=== PATIENT | female | born 1970 | race African-American/Black ===

== ENCOUNTER 2019-05-16 09:45 | Inpatient (IN) ==
--- NOTE | 2019-05-16 09:57 | PROVIDER DOCUMENTATION ---
HPI-Musculoskeletal Pain/Inj - GENERAL Chief Complaint: Extremity Pain Stated Complaint: leg pain Time Seen by Provider: 05/16/19 09:47 Source: patient - HX OF PRESENT ILLNESS-MUSKULOSKELTAL Nature of Presenting Problem: 49yof presents to ED c/o right leg pain and swelling today since waking. She denies fever/chills/N/V/chest pain/SOB/any known injuries. Quality of Pain: reports: aching Severity in ED: moderate Onset/Duration: gradual Timing: still present Modifying Factors: improves with: nothing Any recent injury?: No Locality of Occurance: Home Similar Symptoms Previously?: No Recently seen or treated by another doctor?: No Review of Systems - Adult - REVIEW OF SYSTEMS - ADULT Constitutional: reports: no symptoms reported Eyes: reports: no symptoms reported Ears, Nose, Mouth & Throat: reports: no symptoms reported Cardiovascular: reports: no symptoms reported Respiratory: reports: no symptoms reported Gastrointestinal: reports: no symptoms reported Genitourinary: reports: no symptoms reported Musculoskeletal: reports: no symptoms reported Integumentary: reports: see HPI, other (right leg swollen/painful) Neurological: reports: no symptoms reported Psychiatric: reports: no symptoms reported Endocrine: reports: no symptoms reported Hematologic/Lymphatic: reports: no symptoms reported Allergic/Immunologic: reports: no symptoms reported All Other Systems: Reviewed and Negative Past History - Adult - PAST MEDICAL HISTORY-ADULT Review of Records: reports: Old Records Reviewed, Nursing Assessment Review, Medications Reviewed, Social history reviewed & non-contributory. - SOCIAL HISTORY Smoking: non-smoker Living Situation: family Physical Exam-Injury Related - Physical Exam-Injury Related Initial Vital Signs Reviewed: Yes General Appearance: appears well, alert, no apparent distress Eyes: PERRL/EOMI, pink conjunctivae Head, Ears, Nose, Mouth & Throat: normocephalic/atraumatic, moist mucous membranes, normal ENT inspection, TMs normal, pharynx normal Neck: non-tender, full range of motion, supple, normal inspection, other (no meningismus) Respiratory: chest non-tender, lungs clear, normal breath sounds, no pleuratic chest pain, no respiratory distress, no accessory muscle use Cardiovascular: normal peripheral pulses, tachycardia Abdominal Exam: normal bowel sounds, non tender, soft, no organomegaly Lymphatic: no adenopathy Back Exam: normal inspection, no CVA tenderness, no vertebral tenderness Extremity: normal range of motion, swelling (right leg from calf to toes: moderate), tenderness (right leg from calf to toes: moderate) Integumentary: normal color, warm/dry 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, grossly normal, no motor/sensory deficits Psych/Mental Status: normal mood/affect, normal thought content, normal thought process, oriented x 3 - Glascow Coma Score Best Eye Response (Tonya): (4) open spontaneously Best Verbal Response (Tonya): (5) oriented Best Motor Response ([place]): (6) obeys commands Tonya Total: 15 Progress - PLAN OF CARE/RESULTS Progress/Plan/Lab Results: Vital Signs - 8 hr 05/16/19 09:50 05/16/19 12:50 05/16/19 13:18 Temperature 100.2 F H 99.5 F Pulse Rate 143 H 134 H Respiratory Rate 24 22 Blood Pressure 111/70 122/62 O2 Sat by Pulse Oximetry 96 99 05/16/19 12:18 Influenza Screen - Final Nasopharyngeal Laboratory Results - last 24 hr 05/16/19 05/16/19 05/16/19 11:15 11:15 11:15 WBC 30.09 H RBC 3.37 L Hgb 11.0 L Hct 33.7 L MCV 100.0 H MCH 32.6 H MCHC 32.6 L RDW Std Deviation 13.3 Plt Count 194 MPV 12.5 H Immature Gran % (Auto) 1.4 H Neut % (Auto) 91.9 H Lymph % (Auto) 2.5 L Reagan % (Auto) 4.1 Eos % (Auto) 0.0 Baso % (Auto) 0.1 Immature Gran # (Auto) 0.43 H Neut # (Auto) 27.65 H Lymph # (Auto) 0.75 L Reagan # (Auto) 1.23 H Eos # (Auto) 0.00 Baso # (Auto) 0.03 Segmented Neutrophils 76 H Band Neutrophils 18 H Lymphocytes 2 L Monocytes 4 PT 14.8 INR 1.14 PTT (Actin FS) 27.0 D-Dimer, Quantitative 0.88 H Sodium 140 Potassium 2.4 L* Chloride 87 L Carbon Dioxide 35 Anion Gap 18 BUN 6 L Creatinine 0.6 Estimated GFR/1.73 m2 > 60 BUN/Creatinine Ratio 10 Glucose 192 H Calculated Osmolality 282 Calcium 9.1 Total Bilirubin 0.78 AST 16 ALT 25 Alkaline Phosphatase 65 Creatine Kinase 44 Troponin T Qlp-Y-Yittofecinq Pept Total Protein 6.6 Albumin 3.3 L Globulin 3.3 Albumin/Globulin Ratio 1.0 Plasma Lactate Cortisol Urine Source 05/16/19 05/16/19 05/16/19 11:15 11:15 11:15 WBC RBC Hgb Hct MCV MCH MCHC RDW Std Deviation Plt Count MPV Immature Gran % (Auto) Neut % (Auto) Lymph % (Auto) Reagan % (Auto) Eos % (Auto) Baso % (Auto) Immature Gran # (Auto) Neut # (Auto) Lymph # (Auto) Reagan # (Auto) Eos # (Auto) Baso # (Auto) Segmented Neutrophils Band Neutrophils Lymphocytes Monocytes PT INR PTT (Actin FS) D-Dimer, Quantitative Sodium Potassium Chloride Carbon Dioxide Anion Gap BUN Creatinine Estimated GFR/1.73 m2 BUN/Creatinine Ratio Glucose Calculated Osmolality Calcium Total Bilirubin AST ALT Alkaline Phosphatase Creatine Kinase Troponin T < 0.010 Dmx-F-Ohzibnikvxc Pept 291 H Total Protein Albumin Globulin Albumin/Globulin Ratio Plasma Lactate 5.0 H* Cortisol Urine Source 05/16/19 05/16/19 11:15 14:45 WBC RBC Hgb Hct MCV MCH MCHC RDW Std Deviation Plt Count MPV Immature Gran % (Auto) Neut % (Auto) Lymph % (Auto) Reagan % (Auto) Eos % (Auto) Baso % (Auto) Immature Gran # (Auto) Neut # (Auto) Lymph # (Auto) Reagan # (Auto) Eos # (Auto) Baso # (Auto) Segmented Neutrophils Band Neutrophils Lymphocytes Monocytes PT INR PTT (Actin FS) D-Dimer, Quantitative Sodium Potassium Chloride Carbon Dioxide Anion Gap BUN Creatinine Estimated GFR/1.73 m2 BUN/Creatinine Ratio Glucose Calculated Osmolality Calcium Total Bilirubin AST ALT Alkaline Phosphatase Creatine Kinase Troponin T Ohg-U-Hijrhufaril Pept Total Protein Albumin Globulin Albumin/Globulin Ratio Plasma Lactate Cortisol 10.8 Urine Source CLEAN CATCH Orders Category Date Time Status Cardiac Monitoring DIRECTED Care 05/16/19 10:17 Active Rivera Cath Insertion ORDERED Care 05/16/19 12:13 Active IV Insertion ORDERED Care 05/16/19 10:19 Completed IV [Saline Loc] NOW Care 05/16/19 09:55 Active Notify MD of + Sepsis Screen NOW Care 05/16/19 10:19 Active Notify Physician As Ordered Care 05/16/19 10:19 Active Nursing- Obtain EKG ONCE Care 05/16/19 10:16 Active Repeat Vital Signs .Blood Pressure Care 05/16/19 11:03 Active Repeat Vital Signs .Heart Rate Care 05/16/19 11:03 Active Repeat Vital Signs .Temp Care 05/16/19 10:17 Active CHEST-1 VIEW [RAD] Stat Exams 05/16/19 10:16 Completed CTA [CT ANGIOGRM PULMONARY ARTERIES] [CT] Stat Exams 05/16/19 12:40 Ordered LOWER LEG-RIGHT [RAD] Stat Exams 05/16/19 13:00 Completed BLOOD CULTURE [BLDCUL] Stat Lab 05/16/19 12:18 Results CBC WITH DIFF [HEME] Stat Lab 05/16/19 11:15 Completed CK PROFILE [SP CHEM] Stat Lab 05/16/19 11:15 Completed COMPREHENSIVE METABOLIC PANEL [CHEM] Stat Lab 05/16/19 11:15 Completed CORTISOL Stat Lab 05/16/19 11:15 Completed D-DIMER [COAG] Stat Lab 05/16/19 11:15 Completed INFLUENZA SCREEN A/B Stat Lab 05/16/19 12:18 Completed LACTATE, PLASMA [CHEM] Q3H Lab 05/16/19 11:15 Completed LACTATE, PLASMA [CHEM] Q3H Lab 05/16/19 15:09 Received LACTATE, PLASMA [CHEM] Q3H Lab 05/16/19 16:30 Uncollected LACTATE, PLASMA [CHEM] Stat Lab 05/16/19 15:19 Ordered PRO B-NATRIURETIC PEPTIDE Stat Lab 05/16/19 11:15 Completed PROTIME WITH INR [COAG] Stat Lab 05/16/19 11:15 Completed PTT [COAG] Stat Lab 05/16/19 11:15 Completed TROPONIN T Stat Lab 05/16/19 11:15 Completed URINALYSIS [URINALYSIS] Stat Lab 05/16/19 14:45 Results 0.9% Sodium Chloride Inj [Ns] 1,000 ml Med 05/16/19 12:12 Discontinued IV 999 mls/hr 0.9% Sodium Chloride Inj [Ns] 1,000 ml Med 05/16/19 12:56 Discontinued IV 999 mls/hr 0.9% Sodium Chloride Inj [Ns] 500 ml Med 05/16/19 10:16 Discontinued IV 999 mls/hr 0.9% Sodium Chloride Inj [Ns] 900 ml Med 05/16/19 13:03 Discontinued IV 999 mls/hr Acetaminophen [Tylenol] Med 05/16/19 10:19 Discontinued 1,000 mg PO NOW ONE CefTRIAXONE [Rocephin] 2 gm Med 05/16/19 12:10 Discontinued 0.9% Sodium Chloride Inj [Ns] 50 ml IV NOW Hydrocortisone Sod Succinate [Solu-Cortef] Med 05/16/19 13:03 Discontinued 100 mg IV NOW ONE Morphine Med 05/16/19 13:01 Discontinued 4 mg IV NOW ONE Ondansetron [Zofran] Med 05/16/19 13:01 Discontinued 4 mg IV NOW ONE Potassium Chloride E.r. [Klor-Con] Med 05/16/19 12:40 Discontinued 40 meq PO NOW ONE Vancomycin 1 gm/Ns Med 05/16/19 13:01 Discontinued 1 gm in 250 ml IV NOW Oxygen Device Stat Oth 05/16/19 10:19 Active Pulse Oximetry Stat Oth 05/16/19 10:17 Active EKG [EKG] Stat Ther 05/16/19 10:16 Draft US [Venous U/S Right Leg] Stat Ther 05/16/19 10:18 Completed Transfer/Admit Order [TRANSFER] Routine Transfer 05/16/19 15:22 Ordered Result Diagrams: 05/16/19 11:15 05/16/19 11:15 - REASSESSMENT Reassessment #1 Time Reassessed: 12:12 (Reviewed CBC, Lactic, CXR. Awaiting UA/CMP.) Reassessment #2 Time Reassessed: 15:04 (Continue to await UA results. Dr. Borja has coexamined pt and added Vancomycin IV for RLE cellulitis.) Reassessment #3 Time Reassessed: 15:20 (Spoke with Dr. Calle, he recommends admit to ICU with Dr. Cee and Dr. Jacobs consults. He is aware UA and CTA chest results pending.) Reassessment #4 Time Reassessed: 15:24 (Discussed admit with Dr. Borja, he agrees with plan set forth by Dr. Calle.) Reassessment #5 Time Reassessed: 16:09 Status: worsening (increased pain right leg. Continued tachycardia. Worried about possible necrotizing fasciits.) - CONSULTS/PCP/HOSPITALIST Notification #1 *Consult/PCP/Hospitalist*: Tyler (occupational health nurse for [facility]) Time Discussed: 16:10 Consult Disposition: Will see in ED #2 Consult: chantal Time Discussed: 16:10 Consult Disposition: Will see in ED Departure - Departure Date of Disposition Decision: 05/16/19 Time of Disposition Decision: 15:24 DIAGNOSIS: Hypokalemia, Cellulitis of right leg Sepsis Qualifiers: Sepsis type: sepsis due to unspecified organism Sepsis acute organ dysfunction status: with acute organ dysfunction Severe sepsis acute organ dysfunction type: unspecified Severe sepsis shock status: without septic shock Qualified Code(s): A41.9 - Sepsis, unspecified organism Disposition: ADMITTED INPATIENT 09 Certified Medical Emergency: Emergent Condition: Critical Referrals and Follow-Ups: Denis Calle Jr, MD [Primary Care Provider] - - Critical Care Note This patient required my direct & personal management of CC.: Yes Total Time (mins): 65 Critical Care Statement: This patient required my direct personal management to treat or rule out processes, the absence of which, could potentiallly result in sudden, clinically significant life or limb threatening deterioration. Attestation - Physician/ ZACH Attestation Patient care was provided by Advanced Practice Provider:: Yes Advanced Practice Provider:: Madeline Qiu Advanced Practice Provider documentation review:: The Mid-level provider documentation, treatment plan and medical decision making was reviewed by the physician who agrees with all treatment and medical decision making by the MLP. The physician spent face to face time with patient:: Yes (Dr. Borja coexamined pt.) Advanced Practice Provider documentation review:: Supervising physician onsite and consulted in the evaluation and care of this patient. The physician did have a face to face encounter with the patient. Sepsis: Tissue Perfusion Assmt - Physical Exam Assessment Date: 05/16/19 Time Assessment Initialized: 16:12 Vital Signs: Last Vital Signs Temp 99.5 F 05/16/19 12:50 Pulse 134 H 05/16/19 13:18 Resp 22 05/16/19 13:18 BP 122/62 05/16/19 13:18 Pulse Ox 99 05/16/19 13:18 Height 5 ft 1 in Weight 78.925 kg 05/16/19 16:12 PAtient seems to be worse clinically, increased pain right leg, still tachycardic, water mangle tender. BP normal, skin clean and dry. Lung Sounds:: lungs clear Heart Sounds:: Regular (tachycardic) Capillary Refill Time: Less Than 2 Seconds Peripheral Pulse Evaluation:: radial (R): 2+, radial (L): 2+, dorsalis-pedis (R): 2+, dorsalis-pedis (L): 2+ Skin Exam:: flushed, turgor good - Impression Impression:: Tissue Perfusion Adequate - Plan Plan:: See Orders
[2019-05-16] MEDS ORDERED: NS 500 ML IV ONE (10:16)
[2019-05-16] MEDS ORDERED: TYLENOL PO ONE (10:19)
--- NOTE | 2019-05-16 10:55 | Diag Imaging Result Doc PS360 ---
EXAM: CHEST-1 VIEW 05/16/2019 HISTORY: tachycardia TECHNIQUE: AP upright chest COMMENT: Compared to the previous examination of 10/15/2018 the alveolar opacities which were present previously bilaterally have diminished slightly. Otherwise are has been no significant change. IMPRESSION: Pulmonary fibrosis. Electronically signed by Luis Rick 05/16/2019 10:53 AM
--- NOTE | 2019-05-16 11:02 | EKG Report ---
Test Performed on : 05/16/2019 10:08:06 AM Test Reason : tachycardia Blood Pressure : / mmHG Vent. Rate : 138 BPM Atrial Rate : 138 BPM P-R Int : 172 ms QRS Dur : 082 ms QT Int : 254 ms P-R-T Axes : 047 087 230 degrees QTc Int : 384 ms Sinus tachycardia. Possible Left atrial enlargement Left ventricular hypertrophy with repolarization abnormality Abnormal ECG When compared with ECG of 15-OCT-2018 07:14, premature supraventricular complexes. are no longer present Vent. rate has increased BY 70 BPM QRS duration has decreased Inverted T waves have replaced nonspecific T wave abnormality in Inferior leads T wave inversion now evident in Anterolateral leads Unconfirmed Result
[2019-05-16 11:53] LABS: BASO# 0.03 X1000 (0.0-0.2); BASO% 0.1 % (0.0-0.8); HEMATOCRIT 33.7 % (37.0-47.0); IMM GRAN# 0.43 X1000 (0.0-0.04); IMM GRAN% 1.4 % (0.0-0.5); LYMPH# 0.75 X1000 (1.2-3.4); LYMPH% 2.5 % (20.5-51.1); MCH 32.6 PG (27-31); MCHC 32.6 g/dL (33-37); MONO# 1.23 X1000 (0.11-0.59); MONO% 4.1 % (1.7-9.3); MPV 12.5 FL (7.4-10.4); NEUT# 27.65 X1000 (1.4-6.5); NEUT% 91.9 % (42.2-75.2); PLT 194 X1000 (130-400); RBC 3.37 XMIL (4.2-5.4); RDW 13.3 % (11.5-14.5); WBC 30.09 X1000 (4.8-10.8)
[2019-05-16 11:54] LABS: INR 1.14; PROTIME 14.8 Seconds (11.0-16.0)
[2019-05-16] MEDS ORDERED: ROCEPHIN 2 GM in NS 50 ML IV ONE (12:10)
[2019-05-16] MEDS ORDERED: NS 1,000 ML IV ONE ×2 (12:12→12:56)
[2019-05-16 12:34] LABS: AGAP 18; ALBUMIN 3.3 g/dL (3.5-5.0); ALKALINE PHOSPHATASE 65 U/L (32-104); BUN 6 mg/dL (8-22); CALCIUM 9.1 mg/dL (8.8-10.2); CHLORIDE 87 mmol/L (98-107); CK PROFILE 44 U/L (24-173); COSMO 282; CREATININE 0.6 mg/dL (0.5-0.9); ESTIMATED GFR > 60; GLUCOSE 192 mg/dL (70-104); GOT 16 U/L (10-30); GPT 25 U/L (10-36); SODIUM 140 mmol/L (136-145); TCO2 35 mmol/L (25-35); TOTAL BILIRUBIN 0.78 mg/dL (0.20-1.00); TOTAL PROTEIN 6.6 g/dL (6.3-8.3)
[2019-05-16 12:35] LABS: POTASSIUM 2.4 mmol/L (3.5-5.1)
[2019-05-16] MEDS ORDERED: KLOR-CON PO ONE (12:40)
[2019-05-16] MEDS ORDERED: ZOFRAN IV ONE ×2 (13:01→16:10)
[2019-05-16] MEDS ORDERED: VANCOMYCIN 1 GM/NS 1 GM/250 ML IVPB IV ONE ×2 (13:01→18:00)
[2019-05-16] MEDS ORDERED: MORPHINE IV ONE ×2 (13:01→16:10)
[2019-05-16] MEDS ORDERED: NS 900 ML IV ONE (13:03)
[2019-05-16] MEDS ORDERED: SOLU-CORTEF IV ONE (13:03)
[2019-05-16 13:28] LABS: BANDS 18 % (0-1); LYMPHS 2 % (21-51); MONO 4 % (1-9); SEGS 76 % (42-75)
--- NOTE | 2019-05-16 14:00 | Diag Imaging Result Doc PS360 ---
EXAM: LOWER LEG-RIGHT 05/16/2019 HISTORY: right leg pain, sepsis, r/o gas TECHNIQUE: Right lower leg four views COMMENT: There is no evidence of fracture or dislocation periosteal reaction or erosion. There is no evidence of soft tissue gas however there is considerable subcutaneous edema present typically inferiorly and on the lateral aspect of the calf. IMPRESSION: No evidence of acute bony disease. Electronically signed by Luis Rick 05/16/2019 1:58 PM
[2019-05-16 15:18] LABS: URINE SOURCE CLEAN CATCH
[2019-05-16 15:26] LABS: BILIRUBIN URINE NEGATIVE (NEGATIVE); BLOOD URINE NEGATIVE (NEGATIVE); COLOR YELLOW; GLUCOSE URINE 70 mg/dL (NEGATIVE); KETONE URINE 10 mg/dL (NEGATIVE); LEUKOCYTES URINE NEGATIVE (NEGATIVE); NITRITE URINE NEGATIVE (NEGATIVE); PH URINE 5.5; PROTEIN URINE 30 mg/dL (NEGATIVE); SP GRAVITY URINE 1.021; TURBIDITY URINE HAZY (CLEAR); UROBILINOGEN URINE NORMAL (NORMAL)
[2019-05-16 15:28] LABS: UR EPITHELIAL CELLS <10 /HPF (<10); URINE BACTERIA 4+ /HPF; URINE RBC <10 /HPF (<10); URINE WBC <10 /HPF (<10)
[2019-05-16] MEDS ORDERED: ZOSYN 4.5 GM in NS 100 ML IV ONE (16:10)
[2019-05-16] MEDS ORDERED: VANCOMYCIN IV PER PHARMACY MISC SCH (16:30)
[2019-05-16] MEDS ORDERED: MAXIPIME 2 GM in NS 100 ML IV SCH (16:30)
[2019-05-16] MEDS ORDERED: CLINDAMYCIN 600 MG/NS 600 MG/50 ML IVPB IV SCH (16:45)
[2019-05-16 17:33] LABS: ALLEN TEST YES; BLOOD TYPE ARTERIAL; HCO3-(ACT) 35.8 mmoll (20.0-26.0); METHB 1.4 % (0.0-1.5); O2(CT) 14.9 mL/dL (15.0-23.0); O2HB 94.8 % (95.0-99.0); PCO2(98.6) 50 mmHg (35-45); PO2(98.6) 81 mmHg (60-100); SAMPLE BLOOD; THB 11.1 g/dL (11.5-17.4)
[2019-05-16 17:42] LABS: MODALITY CANNULA
[2019-05-16] MEDS ORDERED: XANAX XR PO PRN (18:05)
--- NOTE | 2019-05-16 18:42 | HISTORY AND PHYSICAL ---
CHIEF COMPLAINT: Right leg pain. HISTORY OF PRESENT ILLNESS: The patient is a 49-year-old, black female, with sarcoidosis, is on multiple medications including methotrexate and prednisone. She was actually scheduled for a comprehensive exam at my office yesterday and called in and cancelled because she just did not feel well. This morning apparently, she woke up with her right leg swollen, and so it hurt so much that she decided to come to the emergency room. Here, it was found out that she has at least a cellulitis, and has a high lactate of 7 and a high white count of a little over 30,000. Hemoglobin is 11.0. PAST MEDICAL HISTORY: Includes sarcoidosis, dependent edema, hypertension, anxiety. MEDICATIONS: Please see medication list. SURGICAL HISTORY: She has had no previous surgeries. FAMILY HISTORY: Mother, brother, and sister are alive. Father is . Brother and sister have hypertension. Paternal grandfather had cancer of the prostate. SOCIAL HISTORY: Former tobacco. Only occasionally uses alcohol with a beer maybe on a weekend. REVIEW OF SYSTEMS: Neurologic: Denies headaches, seizures, visual problems, hearing problems. Pulmonary: She has had chronic shortness of breath with her sarcoidosis, but this seems to have been getting better recently. She is on home oxygen. Cardiovascular: Denies chest pain, heart palpitations, PND, orthopnea. Gastrointestinal: Denies hematochezia, hematemesis, melena, constipation, diarrhea. Genitourinary: Denies any difficulty with urination. Musculoskeletal: She has a swollen right leg that started this morning, or that is when she noticed it. She said she had been itching with her legs a lot and she did scratch her leg, and this may be a source of cellulitis. Endocrine: Denies diabetes, thyroid problems, pituitary problems. PHYSICAL EXAMINATION: VITAL SIGNS: Temperature 100.2 degrees Fahrenheit, blood pressure 110/70, respirations 24, pulse 143. HEENT: Normocephalic. EOMS intact. PERRLA. Throat clear. Fundi benign. NECK: Supple without thyromegaly, lymphadenopathy, carotid bruits. LUNGS: Clear to auscultation and percussion without rhonchi, rales, or wheezes. HEART: Tachycardic without murmurs, gallops, or friction rubs. She has had tachycardia in the past with her sarcoidosis. ABDOMEN: Soft. Active bowel sounds. No organomegaly or tenderness. BREAST: Exam deferred. PELVIC: Exam deferred. RECTAL: Exam deferred. EXTREMITIES: Right lower extremity is swollen from the leg up to her knee. She has one little scratched area that could be a skin breakdown for a source of cellulitis. NEUROLOGICAL: Cranial nerves 2-12 intact grossly. Sensory and motor intact. Reflexes 1+ all. The patient does have pulses in her feet. LABORATORY: A white count of 30,090, hemoglobin 11.0. Potassium is low at 2.4. BUN is 6, creatinine 0.6. Troponin is normal. Plasma lactate was 7.0. Urinalysis did show 4+ bacteria, but negative for leukocytes, negative for blood. She does have a small amount of protein at 30 and a small amount of glucose at 70. Her blood sugar was 192. ASSESSMENT: 1. Cellulitis of right lower extremity. 2. Possible sepsis with elevated lactate. 3. Rule out compartment syndrome. PLAN: We will start her on IV antibiotics. We will do blood cultures. I have consulted Infectious Disease, Surgery, and Pulmonary. Surgery is evaluating her for compartment syndrome. At this time, Dr. Valero does not think she has it, but he is going to watch this closely. Appreciate the help from all of the specialists. cc: Denis Calle Jr, MD
--- NOTE | 2019-05-16 20:23 | Diag Imaging Result Doc PS360 ---
EXAM: CT EXT LOWER RIGHT W/O CON HISTORY: necrotizing fasciitis TECHNIQUE: CT right lower extremity without contrast COMPARISON: None. FINDINGS: No fracture or dislocation. No bone destruction. No air in the soft tissues. Mild subcutaneous edema. No well-defined fluid collection. IMPRESSION: Mild subcutaneous edema. Electronically signed by Christopher Kerr 05/16/2019 8:21 PM
[2019-05-16] MEDS ORDERED: CARDIZEM 100 MG/NS 100 MG/100 ML IVPB IV SCH (20:30)
[2019-05-16] MEDS ORDERED: LOPRESSOR IV SCH (20:30)
--- NOTE | 2019-05-16 20:43 | GENERAL SURGERY CONSULTATION ---
DATE: 05/16/2019 REQUESTING PHYSICIAN: Dr. Borja and TRACI Hare. REASON FOR CONSULTATION: Possible necrotizing fasciitis. HISTORY OF PRESENT ILLNESS: This is a 49-year-old female who was in her usual state of health when she was awakened this morning with acute onset of right lower leg pain it is described as pain from just below her knee all the way down into her foot. It has been persistent throughout the day but not necessarily progressive. The pain is induced by bearing weight or movement, but currently she denies pain while lying still. She also reports some swelling of her right leg and some chills last night. She denies any leg trauma, recent significant exercise or other insult to her leg. However, she does report was scratching her legs a few days ago due to some itching and she has a few scabs on the front of her leg. She has received over 2 L of fluid since being seen in the ER. She remains tachycardic but not hypotensive. Her lactic acid level increased from 5 to 7. PAST MEDICAL HISTORY: Sarcoidosis and COPD. PAST SURGICAL HISTORY: None. HOME MEDICATIONS: Alprazolam, Wellbutrin, clonidine, folic acid, Lasix, Emery, metoprolol, omeprazole, potassium chloride, pravastatin, prednisone, albuterol inhaler, benzonatate, diltiazem, methotrexate, spironolactone. Of note the patient says she recently was told to get off of her hypertensive medications. ALLERGIES: Ambien. FAMILY HISTORY: Reviewed and noncontributory. SOCIAL HISTORY: She is a former smoker. She denies alcohol or illicit drug use. REVIEW OF SYSTEMS: Ten systems reviewed and negative except as noted above. PHYSICAL EXAMINATION: Vital Signs: Temperature 100.2 degrees on presentation, this morning 99 at 1814 hours. Pulse 120, respirations 19, blood pressure 142/77. O2 saturation 100%. General: She is awake and alert. She is oriented x3. No acute distress. HEENT: Normocephalic, atraumatic. Extraocular muscles intact. Pupils equal, round, reactive to light. Sclerae anicteric. Moist mucous membranes. Hearing grossly normal. No oral lesions. Neck: Supple. No thyromegaly. Cardiovascular: Tachycardic and regular. Respiratory: Bilateral equal breath sounds. No increased work of breathing. Gastrointestinal: Abdomen is soft, nontender, nondistended. No organomegaly or mass. Musculoskeletal: She moves all of her extremities but is moving her right foot somewhat weakly. Skin: Her right leg below the knee has some mild to moderate swelling, warmth, and redness. There are no open sores, but a few small excoriations are noted distally. Extremities: The right leg is somewhat edematous as described. She is tender to palpation in the distal part of the calf and ankle level and along the anterior aspect of the leg and over her foot. She does not have pain in her leg with passive or active range of motion. She has a palpable dorsalis pedis and posterior tibial pulse. Her compartments feel soft. Her tenderness was not exquisite, but mild. LABORATORY: White blood cell count 14744, hemoglobin 11, hematocrit 33. Platelet count 194,000. ABG, pH 7.5, pCO2 50, PaO2 81, bicarbonate 35.8, base excess 14, lactate is 4.8. Of note previous lactic acid levels last year ranged from 1.2 to 6.2. Sodium 140, potassium 2.4, chloride 87, CO2 35, BUN 6, creatinine 0.6 glucose 192. Liver function tests normal. Serum lactate 1st measured 5.0, then 7.0 at 1509 hours. However, as noted earlier, her ABG lactate at 1722 hours was 4.8. Urinalysis is unremarkable except for 4+ bacteria. IMAGING: A plain x-ray of her leg today shows no subcutaneous emphysema, but she does have subcutaneous edema. There is no fracture or bony injury. ASSESSMENT AND PLAN: A 49-year-old female with right leg pain and swelling that is consistent with cellulitis. I have a low suspicion of compartment syndrome or necrotizing fasciitis based on physical exam and history. I believe a CT scan of the leg has been ordered by Dr. Cee. I will follow up these results and repeat my physical exam this evening. If she has an indication based on imaging or clinical deterioration then we would take her to the operating room for bilateral fasciotomy type incisions and exploration of her leg. She has been started on broad-spectrum antibiotics. Thank you for the consultation. cc: MD Denis Sepulveda Jr, MD
--- NOTE | 2019-05-16 20:43 | INFECTIOUS DISEASE CONSULT REP ---
DATE: 05/16/2019 CONCLUSION: Ms. Quiles has a right lower extremity cellulitis as well as a leukocytosis and elevated lactate which has continued to rise after appropriate fluid resuscitation and administration of broad-spectrum antibiotics. There is also bacteria on her urinalysis. She has an underlying sarcoidosis, and is taking immunosuppressant drugs. RECOMMENDATIONS: We have ordered a stat CT of the right lower extremity for the consideration of necrotizing fasciitis. Also Dr. Valero has been consulted. Dr. Borja has spoken with him. The patient has already received a dose of vancomycin. We will continue the vancomycin per Pharmacy dosing and have also added cefepime 2 g IV every 8 hours and clindamycin 600 mg IV every 8 hours. Since the urinalysis shows bacteria, we will add on a urine culture. DISCUSSION: Ms. Quiles states that yesterday she was doing her usual daily activities and went to have a pedicure done. At the time, there was no cut that she noticed. She does have a lot of skin issues with itching and dryness to her lower extremities, which she states she scratches often. There are some areas of eschar. During the night last night, she woke up and noticed pain and difficulty walking, as well as swelling to her right lower extremity. She went back to bed and was unable to put weight on her right leg when she got up this morning. REVIEW OF SYSTEMS/PMH: Constitutional: She denies any fever at home. There has also been no trauma or any issues to her right lower extremity, other than scratching. HEENT: She states her vision is good. She wears contacts, and has regular, clear drainage from her eyes. She has no issues with her hearing or tinnitus. Endocrine: She denies any thyroid issues or diabetes history. Cardiovascular: She denies any chest pain or palpitations. Respiratory: She does have a history of COPD with sarcoidosis and fibrosis. She wears oxygen at home with occasional shortness of breath and use of 2 to 4 L depending on her needs. She uses oxygen around the clock. Denies any cough or coughing up any sputum. Gastrointestinal: She denies any nausea/vomiting, diarrhea, or constipation. She does have occasional hemorrhoids. No history of GI bleed or reflux. Genitourinary: She denies any dysuria or flank pain. Musculoskeletal: No history of arthritis or muscle pain or problems or limitations in her mobility, other than the change that came about last night, with pain, erythema, and edema to the right lower extremity. Psychiatric: Denies any anxiety/depression or any psychiatric diagnoses, however she does take anxiety and depression medications. Hematology/Oncology: She denies any previous blood or iron infusions, any blood dyscrasias or cancers. DIAGNOSTIC STUDIES: Her white count is 30.09, hemoglobin 11, platelet count 194,000. Creatinine is 0.6, estimated GFR is greater than 60. Total bilirubin is 0.78, AST 16, ALT 25, alkaline phosphatase 65. Creatine kinase is 44. Plasma lactate is 7. A urinalysis done shows 4+ urine bacteria and less than 10 WBCs. Blood cultures have been ordered and are preliminary. Flu swab is negative. EKG on the unconfirmed report shows a sinus tachycardia. Chest x-ray shows pulmonary fibrosis. X-ray of the right lower extremity shows no evidence of acute bony disease or soft tissue gas but there is subcutaneous edema. PAST MEDICAL HISTORY: Includes sarcoidosis, COPD with oxygen dependency at home, hyperlipidemia, gastroesophageal reflux disease, and hypertension. PAST SURGICAL HISTORY: Bronchoscopy in the past. SOCIAL HISTORY: [place] . She is disabled. Denies any use of alcohol or illicit drugs. She quit smoking 2 years ago and has an approximately 15-year history of smoking half a pack a day. No pets at home. FAMILY HISTORY: Noncontributory. ALLERGIES: No known allergies. HOME MEDICATIONS: Include Xanax, Bumex, Wellbutrin, vitamin D3, Catapres, folic acid, Lasix, hydrocodone, metoprolol, omeprazole, potassium, pravastatin, prednisone, Daliresp, vitamin B12, folic acid, albuterol, ProAir, benzonatate, Cardizem CD, methotrexate, and spironolactone. INFECTIOUS DISEASE: The patient denies any history of pneumonia or urinary tract infections. OBSTETRICAL/GYNECOLOGICAL HISTORY: She states she has never been . PHYSICAL EXAMINATION: Vital Signs: Temperature is 99.5 degrees, pulse rate 134 respiratory rate 22, blood pressure 122/62, O2 saturation is 96% on 4 L nasal cannula. She weighs 78.9 kg and is 5 feet 1 inch. General: This is a chronically ill-appearing, middle-aged female. She is sitting up in the stretcher, currently in no acute distress. HEENT: Atraumatic, normocephalic. Oral mucous membranes are pink and moist. Conjunctivae are pink. She does have some clear drainage from her eyes and green contacts in place. Neck: Supple. Trachea is midline. Cardiovascular: Heart rate and rhythm are regular and fast, sinus tachycardia on the monitor. Respiratory: Lung sounds are clear and diminished to auscultation. No work of breathing is noted. Abdomen: Soft, obese, and nontender. Bowel sounds are active. Integumentary: There is some erythema and a 2+ pitting edema noted pretibially on the right and 1+ on the left. The right lower extremity does have some mild areas of eschar from previous scratching, but otherwise no open areas. Generally, skin is warm and dry. Neurologic: She is awake, alert, and oriented and able to move around independently on the stretcher. Thank you for allowing us to see Ms. Quiles. Dictated by TRACI Vasquez for Khalif Cee MD cc: MD Denis Perdomo Jr, MD MTDD
[2019-05-16] MEDS: CATAPRES PO SCH (20:59)
[2019-05-16] MEDS: KLOR-CON PO SCH (20:59)
[2019-05-16] MEDS ORDERED: CARDIZEM 125 MG/D5W 125 MG/125 ML IVPB IV SCH (21:00)
[2019-05-16] MEDS: WELLBUTRIN SR PO SCH (21:00)
[2019-05-16] MEDS: BUMEX PO SCH (21:00)
[2019-05-16] MEDS ORDERED: LOPRESSOR IV PRN (21:08)
--- NOTE | 2019-05-16 21:26 | GENERAL SURGERY PROGRESS NOTE ---
DATE: 05/16/2019 SUBJECTIVE: The patient reports her leg pain has lessened some. It is now at a level of 5/10. She recently returned to the room from a CT scan of the leg. OBJECTIVE: Vital Signs: She is afebrile. Pulse is in the 140s, blood pressure 137/79, O2 saturation 100%. General: She is awake and alert. No acute distress. Extremities: The right leg was examined. There remains some mild swelling and tenderness, but she is less tender than before in all compartments. She does not complain of as much pain with passive or active range of motion. LABORATORY: Of note, her CK from earlier was negative. Her liver function tests were negative and her serum lactate had gone from 7 to 6. IMAGING: The CT of the right leg was visualized as well as the report, and there is no soft tissue gas or fluid collection seen. She does have some mild subcutaneous edema and cellulitis. ASSESSMENT AND PLAN: A 49-year-old female with right leg cellulitis, much less likely based on history and physical a deep necrotizing soft tissue infection. We will continue close observation in ICU and broad-spectrum antibiotics. If her symptoms or physical exam and vital signs change, then we would proceed to the operating room for urgent exploration. cc: MD Denis Sepulveda Jr, MD
[2019-05-16] MEDS: CLINDAMYCIN 600 MG/D5W 600 MG/50 ML IVPB IV SCH (22:34)
[2019-05-16] MEDS: SOLU-CORTEF IV SCH (23:16)
[2019-05-16] MEDS: PEPCID IV SCH (23:17)
--- NOTE | 2019-05-17 06:35 | PULMONOLOGY CONSULTATION ---
DATE: 05/16/2019 REQUESTING PHYSICIAN: Dr. Borja. PRIMARY CARE PHYSICIAN: Dr. Calle. CLINICAL HISTORY: Ms. cole is a 49-year-old female with sarcoidosis on steroids and methotrexate, who developed pain, erythema and swelling in her right lower extremity. The patient presented to the emergency room with a low-grade temperature of 100.2 degrees. Laboratories revealed significant leukocytosis with a white blood count of 30,000. Venous Dopplers of the lower extremities were negative by report. The patient was evaluated earlier and has subsequently undergone a CT scan of the lower extremity, which reveals no evidence of air in the soft tissues, with mild subcutaneous edema. The patient's lactic acid has been elevated and she has received fluid boluses. She has now been transferred to the ICU. PAST MEDICAL HISTORY PROBLEM LIST: 1. Sarcoidosis with significant parenchymal disease. 2. Obstructive sleep apnea. 3. History of severe pulmonary hypertensive hypertension, with a hypertrophic right ventricle with a PA systolic pressure approaching 100 in October of 2016. SOCIAL HISTORY: The patient has very minimal tobacco history. No alcohol use. FAMILY HISTORY: Noncontributory to current presentation. REVIEW OF SYSTEMS: As noted in the HPI. PHYSICAL EXAMINATION: General: Reveals a well-developed and well-nourished black female with a BMI of 35, who reports some pain in the right lower extremity. Vital Signs: BP 117/65, heart rate 123, respiratory rate 19, oxygen saturation 100% on nasal 4 L per nasal cannula. HEENT: Pupils are equal and reactive. Oropharynx appears clear. Neck: Supple. Chest: Reveals minimal crackles in the lung bases. Cardiac: Increased rate. Regular rhythm. Abdomen: Soft. Extremities: Reveal erythema, tenderness and swelling of the right lower extremity. LABORATORY DATA: PH 7.50, pCO2 of 50, PO2 of 81, with a lactate of 4.8. White blood count 30,000, hemoglobin 11.0, platelet count 194,000. Cortisol 10.8, sodium 140, potassium 2.4, chloride 87, bicarbonate 35, BUN 6, creatinine 0.6. Microbiology is pending. IMPRESSION: A 49-year-old with cellulitis of the right lower extremity, hypoxemic respiratory failure, tachycardia, with severe sepsis with a lactate of greater than 4. PLAN: 1. Agree with ICU monitoring. 2. Fluid boluses as you have done. 3. Agree with current broad-spectrum antibiotics initiated by Dr. Khalif Cee. 4. Oxygen for hypoxemic respiratory failure. 5. Steroids for iatrogenic adrenal insufficiency. 6. Follow up CK tomorrow along with serial leg exams. cc: MD Denis Boggs Jr, MD
--- NOTE | 2019-05-17 06:52 | Diag Imaging Result Doc PS360 ---
CHEST-PORTABLE - 05/17/2019 INDICATION: abnormal exam COMPARISON: 05/16/2019 FINDINGS: There is worsening in the dense bilateral diffuse infiltrates. Stable right hemidiaphragm elevation. Stable cardiomegaly. No large effusion. IMPRESSION: Worsening in the dense bilateral infiltrates. Electronically signed by Chucho Souza 05/17/2019 6:50 AM
[2019-05-17] MEDS: SOLU-CORTEF IV SCH ×3 (07:02→23:12)
[2019-05-17] MEDS: CLINDAMYCIN 600 MG/D5W 600 MG/50 ML IVPB IV SCH (07:02)
[2019-05-17 07:59] LABS: BASO# 0.01 X1000 (0.0-0.2); HEMATOCRIT 31.1 % (37.0-47.0); IMM GRAN# 0.12 X1000 (0.0-0.04); IMM GRAN% 0.5 % (0.0-0.5); LYMPH# 0.71 X1000 (1.2-3.4); LYMPH% 3.2 % (20.5-51.1); MCH 32.3 PG (27-31); MCHC 32.2 g/dL (33-37); MCV 100.3 FL (81-99); MONO# 1.54 X1000 (0.11-0.59); MONO% 6.9 % (1.7-9.3); MPV 12.4 FL (7.4-10.4); NEUT# 19.89 X1000 (1.4-6.5); NEUT% 89.4 % (42.2-75.2); PLT 165 X1000 (130-400); RDW 13.7 % (11.5-14.5); WBC 22.27 X1000 (4.8-10.8)
[2019-05-17] MEDS ORDERED: VANCOMYCIN IV PER PHARMACY MISC SCH (08:00)
[2019-05-17 08:15] LABS: AGAP 11; BUN 9 mg/dL (8-22); CALCIUM 8.4 mg/dL (8.8-10.2); CHLORIDE 93 mmol/L (98-107); COSMO 282; CREATININE 0.8 mg/dL (0.5-0.9); ESTIMATED GFR > 60; GLUCOSE 163 mg/dL (70-104); SODIUM 140 mmol/L (136-145); TCO2 36 mmol/L (25-35)
[2019-05-17 08:25] LABS: BANDS 7 % (0-1); EOS 1 % (1-10); LYMPHS 8 % (21-51); MONO 5 % (1-9); SEGS 77 % (42-75)
--- NOTE | 2019-05-17 08:25 | INFECTIOUS DISEASE PROGRESS NO ---
DATE: 05/17/2019 PRESENT ILLNESS: The patient has cellulitis involving the right leg. Initially, I thought could be a necrotizing fasciitis. However, based on the result of the CAT scan, it does not look like the patient has necrotizing fasciitis. Clinically, it does not look like now she has necrotizing fasciitis. It does appear, however, that the patient has worsening pulmonary infiltrates bilaterally, and this may be due to pneumonia. In addition, the urinalysis shows bacteria but no white cells. Thus, the patient may also have a urinary tract infection. MEDICATIONS: The patient was put on cefepime, vancomycin and clindamycin. PHYSICAL EXAMINATION: Vital Signs: Temperature is 99 degrees, pulse 112, respirations 16, and blood pressure is 90/56. General: This is a somewhat ill-appearing middle-aged female. She is in no acute distress. Head, eyes, ears, nose, and throat: She can hear my spoken words and see near objects. She does not have any white patches on her tongue. Neck: No meningismus. Lungs: Clear to auscultation. Cardiovascular: Heart rate is regular. Abdomen: Soft and nontender. Extremities: The patient's right leg is swollen and tender. Neurologic: Patient is alert. She can move her extremities. There is no tremor. LABORATORY AND X-RAY: Chest x-ray shows worsening bilateral infiltrates. CT scan of the right leg shows mild subcutaneous edema. Blood and urine cultures are pending. Urinalysis showed bacteria but no white cells. Liver function studies are [place] [address], hemoglobin 11, and platelet count 194,000. Creatinine is 0.6. GFR is greater than 60. Blood gases show a pH of 7.5, PO2 of 81, and pCO2 of 50. ASSESSMENT AND PLAN: I think now to me it looks more like the patient has a right leg cellulitis rather than necrotizing fasciitis. She appears to have pneumonia, and possibly also urinary tract infection. My plan is to continue cefepime and vancomycin and stop clindamycin pending further studies. I am going to also order a procalcitonin level. COMORBIDITIES: The patient has a history of sarcoidosis, chronic obstructive pulmonary disease, and gastroesophageal reflux disease. She also was a cigarette smoker. She quit 2 years ago. In addition, the patient is on some immunosuppressive medication namely prednisone and methotrexate. cc: MD Denis Perdomo Jr, MD MTDD
[2019-05-17 08:27] LABS: MAGNESIUM 1.4 mg/dL (1.5-2.7); PHOSPHORUS 3.2 mg/dL (2.7-4.5)
[2019-05-17] MEDS: FOLIC ACID PO SCH (08:32)
[2019-05-17] MEDS: VITAMIN D PO SCH (08:32)
[2019-05-17] MEDS: CARDIZEM CD PO SCH (08:33)
[2019-05-17] MEDS: PRILOSEC PO SCH (08:33)
[2019-05-17] MEDS: KLOR-CON PO SCH ×2 (08:33→19:59)
[2019-05-17] MEDS: TOPROL XL PO SCH (08:34)
[2019-05-17] MEDS: DALIRESP PO SCH (08:35)
[2019-05-17] MEDS: BUMEX PO SCH ×2 (08:37→19:59)
[2019-05-17] MEDS: WELLBUTRIN SR PO SCH ×2 (08:37→19:59)
[2019-05-17] MEDS: CATAPRES PO SCH ×2 (08:42→19:59)
[2019-05-17] MEDS: MAXIPIME 2 GM in NS 100 ML IV SCH ×3 (08:48→23:12)
[2019-05-17] MEDS ORDERED: PREDNISONE PO SCH (09:00)
--- NOTE | 2019-05-17 09:52 | PROGRESS NOTE ---
DATE: 05/17/2019 SUBJECTIVE: The patient is still short of breath. Her CT scan of her right lower extremity did not show fasciitis. She is complaining that she is hungry and does not want to have a CTA of her chest. Chest x-ray showed some more dense infiltrates, perhaps being early pneumonia. White count is down from 30,000 to 22,000 after antibiotics. OBJECTIVE: Vital Signs: Blood pressure is 125/82, respirations 19, pulse is 118, she is afebrile. HEENT: She is normocephalic. EOMs intact. PERRLA. Throat clear. Lungs: Few scattered rales throughout. Heart: Tachycardic without murmurs, gallops, friction rubs. Abdomen: Soft. Active bowel sounds. No organomegaly or tenderness. Neurological: Intact grossly. The patient is anxious. ASSESSMENT: 1. Cellulitis, right lower extremity. 2. Rule out sepsis. 3. Sarcoidosis. 4. Pneumonia. 5. Hypertension. 6. Leukocytosis, improving. PLAN: Continue IV antibiotics. Appreciate the help from all of the specialists, including Infectious Disease, Pulmonary, and Surgery. Continue care at this time. cc: Denis Calle Jr, MD
[2019-05-17] MEDS: SODIUM CHLORIDE 0.9% INJ SCH (10:56)
[2019-05-17] MEDS: PEPCID IV SCH ×2 (10:57→23:12)
--- NOTE | 2019-05-17 13:28 | GENERAL SURGERY PROGRESS NOTE ---
DATE: 05/17/2019 SUBJECTIVE: The patient reports improved pain in her right leg. OBJECTIVE: She is afebrile. Pulse now in the 115 to 120 range, respiratory rate 19 to 26, blood pressure 109-127 systolic, O2 saturation 100%. Urine output 600 mL. General: She is awake, alert, oriented x3. No acute distress. Respiratory: No increased work of breathing. Extremities: The right leg remains warm, swollen, but with only mild tenderness throughout. No crepitus. It is essentially unchanged on exam from yesterday. LABORATORY: Serum lactate is 2.6. Serum CK is 64. White blood cell count is down to 22,000. ASSESSMENT AND PLAN: A 49-year-old female with right lower extremity cellulitis and other signs of severe inflammatory response with sepsis. Her tachycardia, however, has improved. Her leukocytosis is improving. She is no longer febrile. Her leg pain has improved. Her exam is not changed. Her laboratory markers are not as concerning for necrotizing fasciitis. I think it is certainly possible she has another source of infection that is driving her overall illness. We will continue her broad-spectrum antibiotics and observation of the leg but it is trending in the right direction. cc: MD Denis Sepulveda Jr, MD
[2019-05-17] MEDS: VANCOMYCIN 1.5 GM in NS 250 ML IV SCH (14:36)
--- NOTE | 2019-05-17 21:12 | PULMONOLOGY PROGRESS NOTE ---
DATE: 05/17/2019 SUBJECTIVE: The patient is awake, alert, and conversant. She reports she feels better than yesterday, and her leg has less pain. OBJECTIVE: Vital Signs: Maximum temperature in the last 24 hours 100.2 degrees, blood pressure 103/61, heart rate 108, respiratory rate 22, oxygen saturation 99% on 4 L per nasal cannula. HEENT: Pupils are equal and reactive. Oropharynx is clear. Neck: Supple. Chest: Reveals faint crackles in the lung bases. Cardiac exam: S1-S2. Abdomen: Soft. Extremities: Reveal some decrease in right lower extremity swelling. LABORATORIES: No new microbiology/culture data. White blood count 22.27, hemoglobin 10.1, platelet count 165,000. Sodium 140, potassium 3.0, chloride 93, bicarb 36, BUN 9, creatinine in 0.8. Chest x-ray reveals bilateral infiltrates which may be slightly more prominent. IMPRESSION: 49-year-old with: 1. Cellulitis. 2. Hypoxemic respiratory failure. 3. Severe sepsis. 4. Tachycardia. 5. Sarcoidosis. DISCUSSION: This is a 49-year-old with the problems outlined above. Clinically she is improving. Her radiograph appears slightly worse with hydration. Her pain has diminished. Her white blood count is decreasing. PLAN: 1. Continue antibiotics. 2. Continue oxygen. 3. Continue steroids for adrenal insufficiency. cc: MD Denis Boggs Jr, MD
[2019-05-18] MEDS: SOLU-CORTEF IV SCH ×3 (06:16→23:45)
[2019-05-18 06:19] LABS: BASO# 0.01 X1000 (0.0-0.2); BASO% 0.1 % (0.0-0.8); EOS# 0.01 X1000 (0.0-0.7); EOS% 0.1 % (0.0-10.0); HEMATOCRIT 30.5 % (37.0-47.0); HEMOGLOBIN 9.7 g/dL (12.0-16.0); IMM GRAN% 0.5 % (0.0-0.5); LYMPH# 0.62 X1000 (1.2-3.4); LYMPH% 3.2 % (20.5-51.1); MCHC 31.8 g/dL (33-37); MCV 100.7 FL (81-99); MONO# 1.28 X1000 (0.11-0.59); MONO% 6.5 % (1.7-9.3); MPV 12.9 FL (7.4-10.4); NEUT# 17.59 X1000 (1.4-6.5); NEUT% 89.6 % (42.2-75.2); PLT 169 X1000 (130-400); RBC 3.03 XMIL (4.2-5.4); RDW 13.7 % (11.5-14.5); WBC 19.61 X1000 (4.8-10.8)
[2019-05-18 07:16] LABS: BUN 13 mg/dL (8-22); CALCIUM 9.1 mg/dL (8.8-10.2); CREATININE 0.7 mg/dL (0.5-0.9); ESTIMATED GFR > 60; GLUCOSE 173 mg/dL (70-104); TCO2 34 mmol/L (25-35)
[2019-05-18 07:23] LABS: CHLORIDE 94 mmol/L (98-107); POTASSIUM 3.6 mmol/L (3.5-5.1); SODIUM 141 mmol/L (136-145)
[2019-05-18 07:25] LABS: AGAP 13
[2019-05-18 07:27] LABS: COSMO 286
[2019-05-18] MEDS: MAXIPIME 2 GM in NS 100 ML IV SCH ×3 (07:36→23:46)
[2019-05-18 07:49] LABS: BANDS 6 % (0-1); LARGE PLATELETS 1+; LYMPHS 7 % (21-51); MONO 1 % (1-9); SEGS 83 % (42-75)
[2019-05-18] MEDS: PRILOSEC PO SCH (08:07)
[2019-05-18] MEDS: WELLBUTRIN SR PO SCH ×2 (08:07→21:02)
[2019-05-18] MEDS: FOLIC ACID PO SCH (08:08)
[2019-05-18] MEDS: KLOR-CON PO SCH (08:08)
[2019-05-18] MEDS: VITAMIN D PO SCH (08:08)
[2019-05-18] MEDS: BUMEX PO SCH ×2 (08:08→21:02)
[2019-05-18] MEDS: DALIRESP PO SCH (08:09)
[2019-05-18] MEDS: VANCOMYCIN 1.5 GM in NS 250 ML IV SCH (08:10)
[2019-05-18] MEDS: CARDIZEM CD PO SCH (08:11)
[2019-05-18] MEDS: CATAPRES PO SCH ×2 (08:11→21:02)
[2019-05-18] MEDS: TOPROL XL PO SCH (08:11)
[2019-05-18] MEDS ORDERED: DULCOLAX PR ONE (08:49)
[2019-05-18] MEDS: PATIENT'S OWN MED PO SCH (09:41)
[2019-05-18] MEDS: POTASSIUM CHLORIDE 20% LIQUID PO SCH ×2 (09:42→18:26)
--- NOTE | 2019-05-18 10:09 | INFECTIOUS DISEASE PROGRESS NO ---
DATE: 05/18/2019 PRESENT ILLNESS: The patient has a right leg cellulitis. She does have bilateral pulmonary infiltrates. I think it is possible this could be due to pneumonia. I thought yesterday she may have a urinary tract infection. However, the urine culture is negative so I doubt she has a urinary tract infection. MEDICATIONS: The patient is on a combination of cefepime and vancomycin. She is also getting steroids. Clindamycin was discontinued yesterday. PHYSICAL EXAMINATION: Vital Signs: Temperature is 100.2 degrees, pulse 93, respirations 20, blood pressure 101/59. General: This is a somewhat ill-appearing, middle-aged female. She is in no acute distress and she actually looks better than she did in the past 2 days. Head/eyes/ears/nose/throat: She can hear my spoken words and see near objects. She does not have any white coating on her tongue. Neck: No pain with movement. Lungs: Clear to auscultation. Cardiovascular: Heart rate is regular. Abdomen: Soft and nontender. Neurologic: The patient is alert. She can move her extremities. There is no tremor. LAB AND X-RAY: Chest x-ray shows worsening infiltrates. CBC shows a white count of 19,610, hemoglobin 9.7, platelet count 169,000 creatinine 0.7, GFR is greater than 60. ASSESSMENT AND PLAN: The patient has cellulitis, possibly pneumonia. I am going to continue cefepime and vancomycin and also a procalcitonin level has been ordered. COMORBIDITIES: Include sarcoidosis, chronic obstructive pulmonary disease, gastroesophageal reflux disease, and cigarette smoking. She also takes prednisone and methotrexate. cc: MD Denis Perdomo Jr, MD
--- NOTE | 2019-05-18 11:13 | PROGRESS NOTE ---
DATE: 05/18/2019 SUBJECTIVE: The patient remains in the ICU. I am seeing her in Dr. Calle' absence. The patient is feeling better with less swelling and pain in the right leg. She denies cough. She complains of having to take large potassium pills, and she wishes to try Dulcolax suppository for bowel movement. OBJECTIVE: Vital signs: T-max 100.2, pulse 93, respirations 18, blood pressure 102/68, O2 saturation 100% on oxygen per nasal cannula 3 L. Cardiovascular: RRR without murmur. Lungs: Slightly distant breath sounds, CTA. Abdomen: Soft, nontender, nondistended. Extremities: 1 to 2+ right lower extremity edema. Mild darkness to the skin right distal lower extremity. No skin breakdown. Left calf and leg without edema. Neurologic: Cranial nerves II-XII are intact. She is alert and oriented x3. Urine culture no growth. Blood cultures x2 negative after 48 hours. LABORATORY DATA: White count 19.61, hemoglobin 9.7, platelets 169,000. Sodium 141, potassium up to 3.6 from 3.0, chloride 94, CO2 of 34, BUN 13, creatinine 0.7, calcium 9.1. Lactate level yesterday was down from 6 to 2.6. Chest x-ray yesterday showed some bilateral infiltrates. ASSESSMENT: 1. Cellulitis right lower extremity. 2. Pneumonia. 3. Sarcoidosis. 4. COPD. 5. GERD. 6. Tobacco abuse. 7. Chronic immunosuppression on prednisone and methotrexate. PLAN: She is on antibiotics per Dr. Cee to include cefepime and vancomycin, and the patient is improving. The patient is on her Cardizem CD. She is on IV Pepcid for GI prophylaxis. She remains on Bumex 1 mg b.i.d. and we will change her over from the potassium pills to liquid potassium at her request. We will give her Dulcolax suppository x1. She is on Toprol-XL at 100 mg daily and we will continue that. She is also on daily PPI orally. The patient may be able to be moved out of the ICU soon and we will await Dr. Dorsey's recommendation in that regard, but likely today he will be able to be moved out to a regular bed. Continue to follow her labs daily to include CBC and BMP. Appreciate Dr. Valero, Dr. Dorsey and Dr. Cee for their help in this case. cc: MD Denis Kinney Jr, MD
[2019-05-18] MEDS: PEPCID IV SCH ×2 (11:38→23:45)
--- NOTE | 2019-05-18 15:29 | GENERAL SURGERY PROGRESS NOTE ---
DATE: 05/18/2019 SUBJECTIVE: The patient is feeling better. She reports less leg pain, but it is still some swollen. OBJECTIVE: She is afebrile. Pulse in the 90s. Blood pressure 101/64.General: She is awake, alert, and oriented x3. No acute distress. Extremities: The right lower leg remains somewhat swollen, less warm and red, and less tender. LABORATORY: White cell count 19,000. ASSESSMENT AND PLAN: A 49-year-old female with cellulitis of the right leg. Continue current antibiotics. No acute indications for surgery. cc: MD Denis Sepulveda Jr, MD
--- NOTE | 2019-05-18 17:24 | Extremity Venous Study ---
PROCEDURE NAME: Venous U/S Right Leg - 05/16/2019 REFERRING PRACTITIONER: Lazarus. READING PHYSICIAN: Dr. Valero. HOT TOP LINER HELPER: Duc. INDICATION: Right leg swelling and pain. FINDINGS: The deep and superficial veins of the right lower extremity were imaged throughout their course. They are compressible, patent and without thrombus. INTERPRETATION: No DVT or SVT of the right lower extremity. cc: MD Madeline Sepulveda CRNP Roger H. Moss Jr, MD
[2019-05-18] MEDS: SODIUM CHLORIDE 0.9% INJ SCH (23:46)
[2019-05-19] MEDS: VANCOMYCIN 1.5 GM in NS 250 ML IV SCH ×2 (01:19→22:14)
[2019-05-19] MEDS: SOLU-CORTEF IV SCH ×3 (06:10→22:13)
[2019-05-19] MEDS: TYLENOL PO PRN ×2 (06:24→21:09)
--- NOTE | 2019-05-19 07:02 | GENERAL SURGERY PROGRESS NOTE ---
DATE: 05/19/2019 SUBJECTIVE: The patient seems to be doing okay. She says her leg feels better. OBJECTIVE: Vital Signs: The patient is currently afebrile. Her vital signs are stable. General: No acute distress. HEENT: Normocephalic, atraumatic. Pupils equal, round, and reactive to light. Mucous membranes moist. Oropharynx benign. Neck: Supple. Trachea midline. Cardiovascular: Regular rate and rhythm. Lungs: Grossly clear. Abdomen: Soft, nontender, nondistended. Extremities: Right lower extremity remains swollen but overall less tenderness. No signs of compartment syndrome. Vascular: All extremities perfused. Neurologic: Grossly intact. Skin: As noted above. LABORATORY: None as of yet. ASSESSMENT AND PLAN: A 49-year-old female with cellulitis of the right lower extremity. Cellulitis of the right lower extremity: At this time, continue antibiotics. No acute plans for surgical intervention. cc: MD Denis Santana Jr, MD
[2019-05-19 07:38] LABS: BASO# 0.01 X1000 (0.0-0.2); BASO% 0.1 % (0.0-0.8); EOS# 0.04 X1000 (0.0-0.7); EOS% 0.3 % (0.0-10.0); HEMATOCRIT 29.7 % (37.0-47.0); HEMOGLOBIN 9.4 g/dL (12.0-16.0); IMM GRAN# 0.08 X1000 (0.0-0.04); IMM GRAN% 0.6 % (0.0-0.5); LYMPH# 0.59 X1000 (1.2-3.4); LYMPH% 4.6 % (20.5-51.1); MCH 31.9 PG (27-31); MCHC 31.6 g/dL (33-37); MCV 100.7 FL (81-99); MONO% 8.5 % (1.7-9.3); MPV 12.4 FL (7.4-10.4); NEUT# 11.11 X1000 (1.4-6.5); NEUT% 85.9 % (42.2-75.2); PLT 197 X1000 (130-400); RBC 2.95 XMIL (4.2-5.4); RDW 13.5 % (11.5-14.5); WBC 12.93 X1000 (4.8-10.8)
[2019-05-19 07:57] LABS: AGAP 12; BUN 10 mg/dL (8-22); CALCIUM 8.1 mg/dL (8.8-10.2); CHLORIDE 93 mmol/L (98-107); COSMO 281; CREATININE 0.6 mg/dL (0.5-0.9); ESTIMATED GFR > 60; GLUCOSE 150 mg/dL (70-104); POTASSIUM 3.1 mmol/L (3.5-5.1); SODIUM 140 mmol/L (136-145); TCO2 35 mmol/L (25-35)
[2019-05-19 08:23] LABS: BANDS 6 % (0-1); LYMPHS 4 % (21-51); MONO 8 % (1-9); SEGS 82 % (42-75)
[2019-05-19] MEDS: PRILOSEC PO SCH (09:50)
[2019-05-19] MEDS: FOLIC ACID PO SCH (09:54)
[2019-05-19] MEDS: CATAPRES PO SCH ×2 (09:54→21:09)
[2019-05-19] MEDS: CARDIZEM CD PO SCH (09:54)
[2019-05-19] MEDS: POTASSIUM CHLORIDE 20% LIQUID PO SCH ×2 (09:54)
[2019-05-19] MEDS: BUMEX PO SCH ×2 (09:54→21:09)
[2019-05-19] MEDS: WELLBUTRIN SR PO SCH ×2 (09:54→21:09)
[2019-05-19] MEDS: TOPROL XL PO SCH (09:55)
[2019-05-19] MEDS: VITAMIN D PO SCH (09:55)
[2019-05-19] MEDS: PEPCID IV SCH ×2 (09:56→22:13)
[2019-05-19] MEDS: MAXIPIME 2 GM in NS 100 ML IV SCH ×2 (09:58→17:42)
[2019-05-19] MEDS: DALIRESP PO SCH (10:13)
[2019-05-19] MEDS: PATIENT'S OWN MED PO SCH (10:13)
[2019-05-19] MEDS ORDERED: KLOR-CON PO ONE (10:27)
[2019-05-19] MEDS: LOVENOX SUBQ SCH (11:52)
--- NOTE | 2019-05-19 13:16 | PROGRESS NOTE ---
DATE: 05/19/2019 SUBJECTIVE: A 49-year-old female, with known history of sarcoidosis, stage III, with fibrosis of the lungs, under the care of Dr. Dorsey, who came in with right leg cellulitis. The patient was ruled out for necrotizing fasciitis. Appreciate surgical consult. Slowly improving. REVIEW OF SYSTEMS: No chest pain or shortness of breath. is at bedside. PAST MEDICAL HISTORY: Reviewed. PAST SURGICAL HISTORY: Reviewed. MEDICINES: Reviewed. ALLERGIES: Not known. PHYSICAL EXAMINATION: Vitals: Temperature is 97.7 degrees, pulse is 94, blood pressure is 115/63, 3 L nasal cannula 100%, 198 pounds. HEENT: Within normal limits. Neck: Supple. No lymphadenopathy. Chest: Bilateral air entry. Distant heart sounds. Abdomen: Soft, nontender. Good bowel sounds. Extremities: Right leg diffusely red and swollen. LABS: CBC: White cell count 12, hematocrit 29.7, platelets 197,000. Sodium 140, potassium 3.1, chloride 93, BUN 10, creatinine 0.6, glucose 150. Plasma lactate is coming down. Procalcitonin is high. Cortisol 10.8. ASSESSMENT AND PLAN: 1. Right leg cellulitis, improving. Ruled out necrotizing fasciitis. No need for surgical debridement. Continue IV antibiotics with cefepime 2 g IV q.8 and vancomycin. 2. Stress-induced hypoadrenalism on IV Solu-Cortef. 3. Chronic sarcoidosis, steroid-dependent. Increase the incentive spirometry. 4. DVT was ruled out. Consider prophylaxis with enoxaparin 40 mg subcu q.24h. 5. Out of the bed with Physical Therapy. Continue incentive spirometry. The patient wants to keep the Irvera for today. 6. GI prophylaxis with IV Pepcid. 7. Hypokalemia, due to Bumex. Continue to replace, maybe we can decrease the Bumex once daily. 8. We will repeat the chest x-ray in the morning as well as CBC and SMA 7 and magnesium. 9. Discussed the care plan with the family at bedside. LEVEL OF DOCUMENTATION: 35 minutes. cc: MD Denis Yang Jr, MD MTDD
[2019-05-19] MEDS: SODIUM CHLORIDE 0.9% INJ SCH (22:14)
[2019-05-19] MEDS: VANCOMYCIN 1,500 MG in NS 250 ML IV SCH (22:26)
[2019-05-20] MEDS: MAXIPIME 2 GM in NS 100 ML IV SCH ×3 (00:32→16:48)
[2019-05-20 06:31] LABS: BASO# 0.02 X1000 (0.0-0.2); BASO% 0.2 % (0.0-0.8); EOS# 0.03 X1000 (0.0-0.7); EOS% 0.2 % (0.0-10.0); HEMATOCRIT 31.3 % (37.0-47.0); IMM GRAN# 0.14 X1000 (0.0-0.04); IMM GRAN% 1.1 % (0.0-0.5); LYMPH# 0.72 X1000 (1.2-3.4); LYMPH% 5.7 % (20.5-51.1); MCH 32.4 PG (27-31); MCHC 31.9 g/dL (33-37); MCV 101.3 FL (81-99); MONO# 1.44 X1000 (0.11-0.59); MONO% 11.4 % (1.7-9.3); MPV 11.9 FL (7.4-10.4); NEUT# 10.32 X1000 (1.4-6.5); NEUT% 81.4 % (42.2-75.2); PLT 223 X1000 (130-400); RBC 3.09 XMIL (4.2-5.4); RDW 13.4 % (11.5-14.5); WBC 12.67 X1000 (4.8-10.8)
--- NOTE | 2019-05-20 06:35 | Diag Imaging Result Doc PS360 ---
EXAM: CHEST-1 VIEW HISTORY: SOB TECHNIQUE: Chest single view COMPARISON: 05/17/2019 FINDINGS: Poor inspiration. The right hemidiaphragm is elevated. There are bilateral infiltrates. These are less prominent than on the prior study. Small effusions. IMPRESSION: Interval improvement Electronically signed by Christopher Kerr 05/20/2019 6:33 AM
[2019-05-20] MEDS: SOLU-CORTEF IV SCH ×3 (06:48→23:00)
--- NOTE | 2019-05-20 06:58 | GENERAL SURGERY PROGRESS NOTE ---
DATE: 05/20/2019 SUBJECTIVE: The patient seems to be doing okay. OBJECTIVE: Vital Signs: The patient is currently afebrile. Her vital signs are stable. General Examination: No acute distress. HEENT: Normocephalic, atraumatic. Pupils are equal, round, reactive to light. Mucous membranes moist. Oropharynx benign. Neck: Supple. Trachea midline. Cardiovascular: Regular rate and rhythm. Lungs: Grossly clear. Abdomen: Soft, nontender, nondistended. Extremities: Right leg appears to be less swollen. No signs of compartment syndrome. Vascular: All extremities perfused. Skin: As noted above. Neurologic: Grossly intact. Laboratory: Reviewed from this morning. White blood cell count is stable, hematocrit is improving. ASSESSMENT AND PLAN: A 49-year-old female with cellulitis of the right lower extremity. Cellulitis of the right lower extremity. At this time, continue antibiotics, continue local wound care, continue to elevate it. No immediate plans for surgical intervention. cc: MD Denis Santana Jr, MD
[2019-05-20 07:15] LABS: AGAP 11; BUN 10 mg/dL (8-22); CALCIUM 8.7 mg/dL (8.8-10.2); CHLORIDE 92 mmol/L (98-107); COSMO 281; CREATININE 0.7 mg/dL (0.5-0.9); ESTIMATED GFR > 60; GLUCOSE 137 mg/dL (70-104); POTASSIUM 3.4 mmol/L (3.5-5.1); SODIUM 140 mmol/L (136-145); TCO2 37 mmol/L (25-35)
[2019-05-20] MEDS: PEPCID IV SCH ×2 (10:03→23:00)
[2019-05-20] MEDS: WELLBUTRIN SR PO SCH ×2 (10:04→20:55)
[2019-05-20] MEDS: TOPROL XL PO SCH (10:04)
[2019-05-20] MEDS: PRILOSEC PO SCH (10:04)
[2019-05-20] MEDS: CATAPRES PO SCH ×2 (10:04→20:55)
[2019-05-20] MEDS: POTASSIUM CHLORIDE 20% LIQUID PO SCH ×2 (10:04→10:05)
[2019-05-20] MEDS: BUMEX PO SCH (10:04)
[2019-05-20] MEDS: LOVENOX SUBQ SCH (10:05)
[2019-05-20] MEDS: DALIRESP PO SCH (10:05)
[2019-05-20] MEDS: VITAMIN D PO SCH (10:05)
[2019-05-20] MEDS: CARDIZEM CD PO SCH (10:05)
[2019-05-20] MEDS: FOLIC ACID PO SCH (10:05)
[2019-05-20] MEDS: PATIENT'S OWN MED PO SCH (10:05)
[2019-05-20] MEDS: POTASSIUM CHLORIDE 20 MEQ/SWI 20 MEQ/100 ML IVPB IV SCH ×2 (10:06→15:33)
--- NOTE | 2019-05-20 14:16 | PROGRESS NOTE ---
DATE: 05/20/2019 SUBJECTIVE: The patient's right leg is getting better. Decreased shortness of breath. PHYSICAL EXAMINATION: Temperature is 98.9 degrees, pulse is 88, blood pressure is stable. HEENT Examination: Within normal limits. Chest: There is bilateral air entry. Heart sounds are regular. Belly is soft, obese, nontender. Right arm diffusely swollen, is much improved. INVESTIGATIONS: White cell count 12.6, hematocrit 31.3, platelets 223,000. Sodium 140, potassium 3.4, BUN 10, creatinine 0.7, calcium 8.7. ASSESSMENT AND PLAN: 1. Right leg cellulitis, getting better. Currently receiving intravenous vancomycin and cefepime. 2. Hypokalemia due to Bumex. We will decrease to daily. 3. History of sarcoidosis with restrictive lung disease. Followup chest x-ray is better. Continue incentive spirometry. 4. Hypokalemia. Replace the potassium. 5. Deep venous thrombosis and gastrointestinal prophylaxis as per order sheet. 6. Rest of the problems are stable. The patient wants to keep the Rivera in. Out of the bed with physical therapy was ordered. The patient is improving. Followup on blood cultures and urine cultures was negative. Dr. Calle is going to follow up. LEVEL OF DOCUMENTATION: 25 minutes. cc: MD Denis Yang Jr, MD
[2019-05-20] MEDS: VANCOMYCIN 1,500 MG in NS 250 ML IV SCH (15:34)
[2019-05-20] MEDS: TYLENOL PO PRN (20:55)
[2019-05-21] MEDS: MAXIPIME 2 GM in NS 100 ML IV SCH ×3 (01:05→19:08)
[2019-05-21] MEDS: VANCOMYCIN 1,500 MG in NS 250 ML IV SCH ×2 (04:20→15:45)
--- NOTE | 2019-05-21 09:04 | PROGRESS NOTE ---
DATE: 05/21/2019 SUBJECTIVE: The patient is feeling better. Still feels very tired. Her breathing seems to be doing better. Her right leg is better. OBJECTIVE: Vital Signs: Show a blood pressure of 116/67, respirations 20, pulse 83, temperature 98.3 degrees Fahrenheit. HEENT: She is normocephalic. EOMs intact. PERRLA. Throat clear. Lungs: Sound fairly clear to auscultation. Heart: Regular rate and rhythm without murmurs, gallops, or friction rubs. Abdomen: Soft. Active bowel sounds. No organomegaly or tenderness. Neurological Examination: Cranial nerves 2-12 intact grossly. Sensory and motor intact. Reflexes 1+ all. Right lower extremity still is warm but there is much less swelling. ASSESSMENT: 1. Cellulitis, right lower extremity. 2. Probable sepsis. 3. Probable pneumonia. 4. Sarcoidosis. 5. Pulmonary edema. 6. Hypertension. 7. Hypotension. 8. Hypokalemia with a 3.4 potassium yesterday. Lab work today is still pending. PLAN: Continue support. cc: Denis Calle Jr, MD
[2019-05-21] MEDS: DALIRESP PO SCH (09:27)
[2019-05-21] MEDS: PRILOSEC PO SCH (09:27)
[2019-05-21] MEDS: CARDIZEM CD PO SCH (09:27)
[2019-05-21] MEDS: BUMEX PO SCH (09:27)
[2019-05-21] MEDS: WELLBUTRIN SR PO SCH ×2 (09:27→21:01)
[2019-05-21] MEDS: TOPROL XL PO SCH (09:27)
[2019-05-21] MEDS: FOLIC ACID PO SCH (09:28)
[2019-05-21] MEDS: VITAMIN D PO SCH (09:28)
[2019-05-21] MEDS: POTASSIUM CHLORIDE 20% LIQUID PO SCH ×2 (09:29→09:43)
[2019-05-21] MEDS: SOLU-CORTEF IV SCH ×3 (09:36→22:07)
[2019-05-21] MEDS: LOVENOX SUBQ SCH (09:41)
[2019-05-21] MEDS: PATIENT'S OWN MED PO SCH (09:43)
--- NOTE | 2019-05-21 10:13 | GENERAL SURGERY PROGRESS NOTE ---
DATE: 05/21/2019 SUBJECTIVE: The patient reports that her leg feels better, but still has some pain and swelling. OBJECTIVE: She is afebrile. Vital signs are stable.General: She is awake, alert, oriented x3. No acute distress. Extremities: The right leg was examined and continues to have some swelling and erythema. She is mildly tender to palpation, kind of circumferentially, but certainly no crepitant or exquisite pain or tenderness. ASSESSMENT AND PLAN: A 49-year-old female with a right lower extremity cellulitis that is slowly improving. Continue the antibiotics. No acute surgical indications at this time. cc: MD Denis Sepulveda Jr, MD
[2019-05-21 10:15] LABS: BASO# 0.03 X1000 (0.0-0.2); BASO% 0.2 % (0.0-0.8); EOS# 0.06 X1000 (0.0-0.7); EOS% 0.4 % (0.0-10.0); HEMATOCRIT 31.8 % (37.0-47.0); HEMOGLOBIN 9.9 g/dL (12.0-16.0); LYMPH# 0.76 X1000 (1.2-3.4); LYMPH% 5.1 % (20.5-51.1); MCH 32.7 PG (27-31); MCHC 31.1 g/dL (33-37); MONO# 1.17 X1000 (0.11-0.59); MONO% 7.8 % (1.7-9.3); MPV 11.6 FL (7.4-10.4); NEUT# 12.92 X1000 (1.4-6.5); NEUT% 86.5 % (42.2-75.2); PLT 240 X1000 (130-400); RBC 3.03 XMIL (4.2-5.4); RDW 13.9 % (11.5-14.5); WBC 14.94 X1000 (4.8-10.8)
[2019-05-21 10:21] LABS: AGAP 10; BUN 10 mg/dL (8-22); CALCIUM 8.8 mg/dL (8.8-10.2); CHLORIDE 97 mmol/L (98-107); COSMO 281; CREATININE 0.6 mg/dL (0.5-0.9); ESTIMATED GFR > 60; GLUCOSE 153 mg/dL (70-104); POTASSIUM 3.6 mmol/L (3.5-5.1); SODIUM 140 mmol/L (136-145); TCO2 33 mmol/L (25-35)
[2019-05-21 10:36] LABS: BANDS 1 % (0-1); LYMPHS 3 % (21-51); MONO 2 % (1-9); SEGS 94 % (42-75)
[2019-05-21 10:37] LABS: LARGE PLATELETS 3+
[2019-05-21] MEDS: PEPCID IV SCH ×2 (13:13→22:07)
--- NOTE | 2019-05-21 17:41 | PULMONOLOGY PROGRESS NOTE ---
DATE: 05/21/2019 SUBJECTIVE: The patient is awake and alert. She reports some decreased pain in her right lower extremity. She does report shortness of breath with ambulation. OBJECTIVE: Vital Signs: The patient has been afebrile for the last 24 hours. Blood pressure 112/69, heart rate 92, respiratory rate 20, oxygen saturation 100% on nasal cannula. HEENT: Pupils are equal and reactive. Oropharynx appears clear. Neck: Supple. Chest: Reveals diminished breath sounds right base. Cardiac exam: S1, S2. Abdomen: Obese and soft. Extremities: Reveal decreased edema of the right lower extremity. LABORATORIES: White blood count 5.94, hemoglobin 9.9, platelet count 240,000. Sodium 140, potassium 3.6, chloride 97, bicarbonate 33, BUN 10, creatinine 0.6. IMPRESSIONS: A 49-year-old with: 1. Cellulitis. 2. Hypoxemic respiratory failure. 3. Chronic elevation of the right hemidiaphragm. 4. Sarcoidosis. 5. Dyspnea. DISCUSSION: A 49-year-old with problems outlined above. She continues to improve. Her cellulitis appears less prominent than my last visit 4 days ago. PLAN: 1. Continue antibiotics. 2. Continue oxygen. 3. Continue steroids for adrenal insufficiency. cc: MD Denis Boggs Jr, MD
--- NOTE | 2019-05-21 20:58 | INFECTIOUS DISEASE PROGRESS NO ---
DATE: 05/21/2019 PRESENT ILLNESS: Ms. Quiles is being treated for right lower extremity cellulitis as well as pneumonia. MEDICATIONS: Today is day 4 of treatment with cefepime 2 g IV every 8 hours and IV vancomycin per pharmacy dosing. She is also receiving Solu-Cortef 25 mg IV every 8 hours. PHYSICAL EXAMINATION: Vital Signs: Temperature is 99.9 degrees, pulse rate 90, respiratory rate 20, blood pressure 113/62, O2 saturation is 100% on 4 L nasal cannula. General: This is a chronically ill-appearing, middle-aged female. She is sitting up in bed, currently in no acute distress. HEENT: Atraumatic, normocephalic. Oral mucous membranes are pink and moist. Conjunctivae are pale. Neck: Supple. Trachea is midline. Cardiovascular: Heart rate is regular. S1-S2 noted. Respiratory: Lung sounds have some scattered wheezes bilaterally with mild rales to the mid and bases. Abdomen: Soft, round, and nontender, mildly nondistended. Bowel sounds are active. Integumentary: There is some erythema and a 1+ pretibial edema to the right lower extremity with some mild areas of eschar noted from scratching. Neurologic: She is awake, alert, oriented, and able to move around in the bed independently. LABORATORY AND X-RAY: Today her white count is 14.94, hemoglobin 9.9, platelet count 240,000. Creatinine is 0.6. Estimated GFR is greater than 60. Her urine culture showed no growth. Blood cultures have shown no growth after 48 hours. Her procalcitonin was 4.4, making pneumonia very likely. No imaging reports today; however, yesterday her chest x-ray showed interval improvement of the bilateral infiltrates. ASSESSMENT AND PLAN: Ms. Quiles is being treated for right lower extremity cellulitis and pneumonia. She is receiving IV vancomycin and cefepime which we will continue. There is some leukocytosis; however, she is receiving steroids. She has an underlying sarcoidosis. Blood work has already been ordered for in the morning. We will check a chest x-ray for tomorrow. These plans have been discussed with and recommended by Dr. Cee. COMORBIDITIES: For Ms. Quiles include sarcoidosis with immunosuppressive medications, COPD, and gastroesophageal reflux disease. Dictated by TRACI Vasquez for Khalif Cee MD cc: MD Denis Perdomo Jr, MD MTDD
[2019-05-22] MEDS: MAXIPIME 2 GM in NS 100 ML IV SCH ×3 (01:06→18:51)
[2019-05-22] MEDS: VANCOMYCIN 1,500 MG in NS 250 ML IV SCH ×2 (03:06→21:50)
[2019-05-22] MEDS: SOLU-CORTEF IV SCH ×3 (06:08→21:50)
--- NOTE | 2019-05-22 07:08 | Diag Imaging Result Doc PS360 ---
EXAM: CHEST-PORTABLE 05/22/2019 HISTORY: pneumonia TECHNIQUE: AP portable at 0634 COMMENT: There are calcified nodes in the left hilum and calcified granuloma in the left upper lobe. There are coarse opacities bilaterally with subpleural bullae present in the right upper lobe. The appearance the chest has not changed significantly since 05/20/2019. There has been some improvement since 05/17/2019. IMPRESSION: Improved pneumonia superimposed on pulmonary and pleural fibrosis. Granulomatous changes. Electronically signed by Luis Rick 05/22/2019 7:06 AM
[2019-05-22 07:19] LABS: BASO# 0.04 X1000 (0.0-0.2); BASO% 0.3 % (0.0-0.8); EOS# 0.08 X1000 (0.0-0.7); EOS% 0.5 % (0.0-10.0); HEMATOCRIT 33.9 % (37.0-47.0); HEMOGLOBIN 10.3 g/dL (12.0-16.0); IMM GRAN# 0.57 X1000 (0.0-0.04); IMM GRAN% 3.7 % (0.0-0.5); LYMPH# 0.95 X1000 (1.2-3.4); LYMPH% 6.1 % (20.5-51.1); MCH 31.6 PG (27-31); MCHC 30.4 g/dL (33-37); MONO# 1.35 X1000 (0.11-0.59); MONO% 8.7 % (1.7-9.3); MPV 11.7 FL (7.4-10.4); NEUT# 12.51 X1000 (1.4-6.5); NEUT% 80.7 % (42.2-75.2); PLT 275 X1000 (130-400); RBC 3.26 XMIL (4.2-5.4); RDW 13.6 % (11.5-14.5)
[2019-05-22 08:00] LABS: AGAP 9; BUN 12 mg/dL (8-22); CALCIUM 8.6 mg/dL (8.8-10.2); CHLORIDE 97 mmol/L (98-107); COSMO 284; CREATININE 0.8 mg/dL (0.5-0.9); ESTIMATED GFR > 60; GLUCOSE 115 mg/dL (70-104); POTASSIUM 3.8 mmol/L (3.5-5.1); SODIUM 142 mmol/L (136-145); TCO2 36 mmol/L (25-35)
[2019-05-22] MEDS: POTASSIUM CHLORIDE 20% LIQUID PO SCH ×2 (09:00)
[2019-05-22] MEDS: VITAMIN D PO SCH (09:00)
[2019-05-22] MEDS: TOPROL XL PO SCH (09:00)
[2019-05-22] MEDS: PRILOSEC PO SCH (09:00)
[2019-05-22] MEDS: WELLBUTRIN SR PO SCH ×2 (09:00→21:51)
[2019-05-22] MEDS: FOLIC ACID PO SCH (09:00)
[2019-05-22] MEDS: BUMEX PO SCH (09:00)
[2019-05-22] MEDS: PATIENT'S OWN MED PO SCH (09:01)
[2019-05-22] MEDS: CARDIZEM CD PO SCH (09:01)
--- NOTE | 2019-05-22 09:38 | PROGRESS NOTE ---
DATE: 05/22/2019 SUBJECTIVE: The patient says she feels a little bit better. She is getting up to the bedside commode now, and so we are going to take her Rivera catheter out. Will have to wean her off of it. LABORATORY DATA: White blood cells are 15,500, hemoglobin 10.3, hematocrit 33.9. BMP is essentially normal. OBJECTIVE: Vital Signs: Blood pressure 121/63, respirations 20, pulse 81, temperature 98.5 degrees Fahrenheit. HEENT: She is normocephalic. EOMS intact. PERRLA. Throat clear. Lungs: Sound fairly clear to auscultation. Chest x-ray shows clearing of some of her infiltrates, so she is improving with her pneumonia. Heart: Regular rate and rhythm without murmurs, gallops, friction rubs. Abdomen: Soft. Active bowel sounds. No organomegaly or tenderness. Extremities: Right lower extremity is still warm and red, consistent with a cellulitis, but improving. ASSESSMENT: 1. Probable sepsis, though blood cultures came back negative. 2. Cellulitis, right lower extremity. 3. Pneumonia. 4. Sarcoidosis. PLAN: Continue treatment. cc: Denis Calle Jr, MD
[2019-05-22] MEDS: DALIRESP PO SCH (10:45)
[2019-05-22] MEDS: LOVENOX SUBQ SCH (10:45)
[2019-05-22] MEDS: PEPCID IV SCH (11:45)
--- NOTE | 2019-05-22 20:35 | INFECTIOUS DISEASE PROGRESS NO ---
DATE: 05/22/2019 PRESENT ILLNESS: The patient is being treated for a right lower extremity cellulitis and a pneumonia. MEDICATIONS: This is day 5 of treatment with the combination of cefepime and vancomycin. The patient also is on Solu-Cortef and the doses are being decreased. PHYSICAL EXAMINATION: Vital Signs: Temperature is 98.5 degrees, pulse 92, respirations 20, blood pressure 124/65. General: This is a chronically ill-appearing, middle-aged female. She does seem better though than when she came in. Head/eyes/ears/nose/throat: She can hear my spoken words and see near objects. There are no white patches on her tongue. Neck: No pain with movement of the neck. Lungs: Clear to auscultation. Cardiovascular: Heart rate is regular. Abdomen: Soft and nontender. Extremities: The right leg is less swollen and it is not tender. LAB AND X-RAY: Chest x-ray shows improvement in the patient's infiltrates. The creatinine is 0.8. GFR is greater than 60. The CBC shows a white count of 15,500, hemoglobin 10.3, and platelet count 275,000. The patient's procalcitonin level is 4.4 which translates into making the image on the patient's chest x-ray as being pneumonia very likely. ASSESSMENT AND PLAN: Patient is being treated for cellulitis and pneumonia. The plan is to continue IV vancomycin and cefepime. The white count is elevated, but I think it is mainly due to steroids and they are being decreased. COMORBIDITIES: The patient has sarcoidosis and is treated with immunosuppressive medications. She also has COPD and gastroesophageal reflux disease. cc: MD Denis Perdomo Jr, MD
[2019-05-22] MEDS: TYLENOL PO PRN (21:09)
[2019-05-23] MEDS: MAXIPIME 2 GM in NS 100 ML IV SCH ×3 (01:25→15:19)
[2019-05-23] MEDS: PEPCID IV SCH ×3 (01:25→21:58)
[2019-05-23] MEDS: SOLU-CORTEF IV SCH ×3 (02:39→15:18)
[2019-05-23 07:50] LABS: BASO# 0.04 X1000 (0.0-0.2); BASO% 0.3 % (0.0-0.8); EOS# 0.07 X1000 (0.0-0.7); EOS% 0.5 % (0.0-10.0); HEMATOCRIT 34.1 % (37.0-47.0); HEMOGLOBIN 10.5 g/dL (12.0-16.0); IMM GRAN# 0.77 X1000 (0.0-0.04); IMM GRAN% 5.2 % (0.0-0.5); LYMPH# 0.91 X1000 (1.2-3.4); LYMPH% 6.2 % (20.5-51.1); MCH 31.8 PG (27-31); MCHC 30.8 g/dL (33-37); MCV 103.3 FL (81-99); MONO% 11.6 % (1.7-9.3); MPV 11.9 FL (7.4-10.4); NEUT% 76.2 % (42.2-75.2); PLT 312 X1000 (130-400); RDW 13.6 % (11.5-14.5); WBC 14.69 X1000 (4.8-10.8)
[2019-05-23 08:10] LABS: AGAP 7; BUN 9 mg/dL (8-22); CALCIUM 8.9 mg/dL (8.8-10.2); CHLORIDE 97 mmol/L (98-107); COSMO 282; CREATININE 0.7 mg/dL (0.5-0.9); ESTIMATED GFR > 60; GLUCOSE 95 mg/dL (70-104); SODIUM 142 mmol/L (136-145); TCO2 38 mmol/L (25-35)
[2019-05-23] MEDS: PATIENT'S OWN MED PO SCH (08:26)
[2019-05-23] MEDS: TOPROL XL PO SCH (08:29)
[2019-05-23] MEDS: DALIRESP PO SCH (08:29)
[2019-05-23] MEDS: FOLIC ACID PO SCH ×2 (08:29→08:36)
[2019-05-23] MEDS: CARDIZEM CD PO SCH (08:30)
[2019-05-23] MEDS: BUMEX PO SCH (08:30)
[2019-05-23] MEDS: POTASSIUM CHLORIDE 20% LIQUID PO SCH ×2 (08:30→08:31)
[2019-05-23] MEDS: WELLBUTRIN SR PO SCH ×2 (08:30→21:58)
[2019-05-23] MEDS: VITAMIN D PO SCH (08:30)
[2019-05-23] MEDS: PRILOSEC PO SCH (08:35)
[2019-05-23] MEDS: LOVENOX SUBQ SCH ×2 (08:37→13:04)
[2019-05-23 09:05] LABS: BANDS 2 % (0-1); LARGE PLATELETS 1+; LYMPHS 10 % (21-51); MONO 8 % (1-9); SEGS 76 % (42-75)
--- NOTE | 2019-05-23 09:08 | PROGRESS NOTE ---
DATE: 05/23/2019 SUBJECTIVE: The patient says she is feeling better. Still very weak. She has her Rivera catheter out now. OBJECTIVE: Vital Signs: Blood pressure 134/73, respirations 18, pulse 86, temperature 97.8 degrees Fahrenheit. HEENT: She is normocephalic. EOMS intact. PERRLA. Throat clear. Lungs: Clear to auscultation and percussion without rhonchi, rales, or wheezes. Heart: Regular rate and rhythm without murmurs, gallops, friction rubs. Abdomen: Soft. Active bowel sounds. No organomegaly or tenderness. Neurological exam: Intact grossly. Right lower extremity still is swollen and hotter than the left leg, but is improving. LABS AND X-RAYS: White count is 14,690, hemoglobin 10.5. Electrolytes essentially normal. Hypokalemia corrected. Chest x-ray showed improved pneumonia yesterday. ASSESSMENT: 1. Probable sepsis, even though blood cultures were negative. 2. Cellulitis, right lower extremity. 3. Pneumonia. 4. Sarcoidosis. 5. Hypokalemia, resolved. 6. Hypertension. PLAN: Continue support. Appreciate help from all the specialists. cc: Denis Calle Jr, MD
[2019-05-23] MEDS: VANCOMYCIN 1,500 MG in NS 250 ML IV SCH (16:33)
--- NOTE | 2019-05-23 22:51 | INFECTIOUS DISEASE PROGRESS NO ---
DATE: 05/23/2019 PRESENT ILLNESS: The patient has a right lower extremity cellulitis and pneumonia. MEDICATIONS: The patient has been on cefepime and vancomycin now for 6 days. The patient also is on Solu-Cortef, which could well be in part responsible for the patient's leukocytosis. PHYSICAL EXAMINATION: Vital Signs: Temperature is 98.3 degrees, pulse 88, respirations 18, blood pressure is 120/57. General: This is a chronically ill-appearing middle-aged female. She is in no acute distress, and she looks as though she is getting better. Head/eyes/ears/nose/throat: She can hear my spoken words and see near objects. She does not have any white patches in her mouth. Neck: No pain with movement. Lungs: Clear to auscultation. Cardiovascular: Regular heart rate. Abdomen: Soft and nontender. Extremities: The right leg is less swollen, and it is not tender. Neurologic: Patient is alert. She can move her extremities. There is no tremor. LAB AND X-RAY: Chest x-ray shows improvement in the infiltrates. Creatinine is 0.7. GFR is greater than 60. CBC shows a white count of 14,680, hemoglobin 10.5 and platelet count 312,000. ASSESSMENT AND PLAN: Patient has leg cellulitis and pneumonia. I plan to continue the current antibiotics. Part of the patient's leukocytosis I think can be due to the patient being on steroids. COMORBIDITIES: Sarcoidosis and immunosuppressive medications that she takes. The patient also has COPD and gastroesophageal reflux disease. cc: MD Denis Perdomo Jr, MD
[2019-05-24] MEDS: MAXIPIME 2 GM in NS 100 ML IV SCH ×4 (00:04→23:42)
[2019-05-24] MEDS: PEPCID IV SCH ×3 (00:25→23:42)
--- NOTE | 2019-05-24 06:30 | PULMONOLOGY PROGRESS NOTE ---
DATE: 05/23/2019 SUBJECTIVE: The patient is awake, alert, and conversant. She reports her pain in her leg and swelling continues to decrease. OBJECTIVE: Vital Signs: The patient has been afebrile for the last 24 hours. Blood pressure 109/65, heart rate 91, respiratory rate 18, and oxygen saturation 100% on 3 L per nasal cannula. HEENT: Pupils are equal and reactive. Oropharynx appears clear. Neck: Supple. Chest: Reveals decreased breath sounds right base with occasional rhonchi. Cardiac: S1-S2. Abdomen: Soft. Extremities: Reveal decreasing edema and erythema of the right lower extremities. IMPRESSION: A 49-year-old with the followin. Cellulitis. 2. Hypoxemic respiratory failure. 3. Chronic elevation of the right hemidiaphragm. 4. Sarcoidosis. 5. Dyspnea. PLAN: 1. Continue antibiotics per Infectious Disease. 2. Continue elevation of the right lower extremity. 3. Continue oxygen therapy. 4. Transition patient to oral steroids for steroid taper as tolerated. cc: MD Denis Boggs Jr, MD
[2019-05-24 08:44] LABS: BASO# 0.04 X1000 (0.0-0.2); BASO% 0.4 % (0.0-0.8); EOS# 0.21 X1000 (0.0-0.7); EOS% 2.1 % (0.0-10.0); HEMATOCRIT 33.7 % (37.0-47.0); HEMOGLOBIN 10.3 g/dL (12.0-16.0); IMM GRAN# 0.62 X1000 (0.0-0.04); IMM GRAN% 6.2 % (0.0-0.5); LYMPH# 1.07 X1000 (1.2-3.4); LYMPH% 10.7 % (20.5-51.1); MCH 32.1 PG (27-31); MCHC 30.6 g/dL (33-37); MONO# 0.97 X1000 (0.11-0.59); MONO% 9.7 % (1.7-9.3); MPV 11.7 FL (7.4-10.4); NEUT# 7.11 X1000 (1.4-6.5); NEUT% 70.9 % (42.2-75.2); PLT 313 X1000 (130-400); RBC 3.21 XMIL (4.2-5.4); RDW 13.8 % (11.5-14.5); WBC 10.02 X1000 (4.8-10.8)
[2019-05-24 08:53] LABS: AGAP 10; BUN 7 mg/dL (8-22); CALCIUM 8.7 mg/dL (8.8-10.2); CHLORIDE 98 mmol/L (98-107); COSMO 284; CREATININE 0.7 mg/dL (0.5-0.9); ESTIMATED GFR > 60; GLUCOSE 92 mg/dL (70-104); POTASSIUM 3.5 mmol/L (3.5-5.1); SODIUM 144 mmol/L (136-145); TCO2 36 mmol/L (25-35)
[2019-05-24] MEDS: VITAMIN D PO SCH (08:54)
[2019-05-24] MEDS: PREDNISONE PO SCH (08:54)
[2019-05-24] MEDS: CARDIZEM CD PO SCH (08:55)
[2019-05-24] MEDS: TOPROL XL PO SCH (08:55)
[2019-05-24] MEDS: PRILOSEC PO SCH (08:55)
[2019-05-24] MEDS: BUMEX PO SCH (08:55)
[2019-05-24] MEDS: DALIRESP PO SCH (08:55)
[2019-05-24] MEDS: WELLBUTRIN SR PO SCH ×2 (08:56→20:12)
[2019-05-24] MEDS: POTASSIUM CHLORIDE 20% LIQUID PO SCH ×2 (08:56→09:00)
[2019-05-24 09:31] LABS: EOS 2 % (1-10); LYMPHS 11 % (21-51); MONO 11 % (1-9); SEGS 71 % (42-75)
[2019-05-24 09:32] LABS: ANISOCYTOSIS 1+; POIKILOCYTOSIS 1+; TARGET CELLS 1+
[2019-05-24] MEDS: VANCOMYCIN 1,500 MG in NS 250 ML IV SCH (09:50)
[2019-05-24] MEDS: PATIENT'S OWN MED PO SCH (10:00)
[2019-05-24] MEDS: FOLIC ACID PO SCH (10:20)
[2019-05-24] MEDS: LOVENOX SUBQ SCH (10:20)
--- NOTE | 2019-05-24 12:08 | PROGRESS NOTE ---
DATE: 05/24/2019 SUBJECTIVE: The patient says she is feeling much better. Her right leg is doing better. There is less swelling and less heat coming from it. OBJECTIVE: Vital Signs: Blood pressure 119/60, respirations 18, pulse 76, temperature 98.2 degrees Fahrenheit. HEENT: She is normocephalic. EOMS intact. PERRLA. Throat clear. Lungs: Clear to auscultation and percussion without rhonchi, rales, or wheezes. Heart: Regular rate and rhythm without murmurs, gallops, friction rubs. Abdomen: Soft. Active bowel sounds. No organomegaly or tenderness. LABORATORY DATA: Lab work is pending. ASSESSMENT: 1. Sepsis. Note blood cultures were negative, but other signs indicated that she was septic. 2. Cellulitis, right lower extremity. Right leg has much less heat to it and looks much better today. 3. Pneumonia. Previous chest x-ray shows clearing. 4. Sarcoidosis. 5. Hypertension. PLAN: Continue treatment. Dr. Dorsey has already changed her from IV Solu-Medrol over to p.o. prednisone 10 mg daily. She was on 5 mg at home, and will eventually taper her down. cc: Denis Calle Jr, MD
[2019-05-25] MEDS: TYLENOL PO PRN ×2 (00:23→21:51)
--- NOTE | 2019-05-25 03:10 | PULMONOLOGY PROGRESS NOTE ---
DATE: 05/24/2019 SUBJECTIVE: The patient is awake, alert and conversant. She reports she is feeling better. Her leg continues to decrease in size. OBJECTIVE: Vital Signs: The patient has been afebrile for the last 24 hours. Blood pressure is 110/75, heart rate 79, respiratory rate 19, oxygen saturation is 100% HEENT: Pupils are equal and reactive. Oropharynx appears clear. Neck: Supple. Chest: Reveals good air entry bilaterally with minimal crackles in the bases. Cardiac: S1, S2. Abdomen: Soft. Extremities: Reveal decreasing erythema and edema of the right lower extremity. IMPRESSION: A 49-year-old with: 1. Cellulitis of the lower extremity. 2. Hypoxemic respiratory failure. 3. Chronic elevation of the right hemidiaphragm. 4. Dyspnea. 5. Sarcoidosis. PLAN: 1. Continue prednisone 10 mg per day through discharge. This can be weaned as an outpatient. 2. Continue antibiotics per Infectious Disease. 3. Continue to elevate the lower extremity. 4. Continue oxygen therapy. cc: MD Denis Boggs Jr, MD
[2019-05-25] MEDS: VANCOMYCIN 1,500 MG in NS 250 ML IV SCH ×2 (04:12→21:45)
[2019-05-25] MEDS: MAXIPIME 2 GM in NS 100 ML IV SCH ×2 (08:24→15:50)
[2019-05-25] MEDS: POTASSIUM CHLORIDE 20% LIQUID PO SCH ×2 (09:13→09:14)
[2019-05-25] MEDS: TOPROL XL PO SCH (09:15)
[2019-05-25] MEDS: VITAMIN D PO SCH (09:15)
[2019-05-25] MEDS: BUMEX PO SCH (09:15)
[2019-05-25] MEDS: DALIRESP PO SCH (09:15)
[2019-05-25] MEDS: WELLBUTRIN SR PO SCH ×2 (09:15→21:45)
[2019-05-25] MEDS: CARDIZEM CD PO SCH (09:15)
[2019-05-25] MEDS: FOLIC ACID PO SCH (09:15)
[2019-05-25] MEDS: PRILOSEC PO SCH (09:15)
[2019-05-25] MEDS: PREDNISONE PO SCH (09:15)
--- NOTE | 2019-05-25 10:00 | Diag Imaging Result Doc PS360 ---
EXAM: CHEST-2 VIEWS HISTORY: pneumonia TECHNIQUE: Chest two views COMPARISON: 05/22/2019 FINDINGS: Poor inspiratory effort. The right hemidiaphragm is elevated. The heart is prominent. There are increased interstitial markings in the lungs. Possible left basilar pneumonia. There are scattered granuloma and calcified mediastinal nodes. No pleural effusions. IMPRESSION: Stable chest Electronically signed by Christopher Kerr 05/25/2019 9:57 AM
[2019-05-25] MEDS: PATIENT'S OWN MED PO SCH (10:15)
[2019-05-25] MEDS: LOVENOX SUBQ SCH (10:16)
--- NOTE | 2019-05-25 10:24 | PROGRESS NOTE ---
DATE: 05/25/2019 SUBJECTIVE: The patient is starting to feel better. She did get up and walk just to the door and back with assistance. She says she was very tired with that. She still has some swelling and redness to her right lower extremity but I do believe her cellulitis is improving. OBJECTIVE: Vital signs: Blood pressure is a little low at 92/52, earlier this morning was 128/66. Pulse 18, respirations 72, temperature 98.6 degrees Fahrenheit. HEENT: She is normocephalic. EOMS intact. PERRLA. Throat clear. Lungs: Clear to auscultation and percussion without rhonchi, rales, or wheezes. Feel like pneumonia has probably cleared. Heart: Regular rate and rhythm without murmurs, gallops, friction rubs. Abdomen: Soft. Active bowel sounds. No organomegaly or tenderness. Neurologic: Intact grossly. Extremities: Both legs have a little edema but more so on the right side and she still has some heat and redness to the right lower extremity. It is improving but has not cleared completely. LABORATORY DATA: White count is down to 10,020, hemoglobin 10.3, hematocrit 33.7. Chemistry profile is essentially normal. ASSESSMENT: 1. Probable sepsis even though blood cultures were negative. 2. Cellulitis, right lower extremity. 3. Immunocompromised. Has been on prednisone and has been on methotrexate but that has been held. 4. Pneumonia. 5. Sarcoidosis. 6. Hypertension. 7. Hypokalemia, now resolved. PLAN: We will continue IV antibiotics I think at least through the weekend. I want to make sure that her white counts stay normal and that the cellulitis has resolved since she has been immunocompromised. Will continue physical therapy as she is deconditioned as well. cc: Denis Calle Jr, MD
[2019-05-25] MEDS: PEPCID IV SCH ×2 (13:15→23:35)
--- NOTE | 2019-05-25 16:30 | INFECTIOUS DISEASE PROGRESS NO ---
DATE: 05/25/2019 PRESENT ILLNESS: Ms. Quiles is being treated for pneumonia and right lower extremity cellulitis. MEDICATIONS: She is receiving cefepime 2 g IV every 8 hours and vancomycin IV per pharmacy dosing. Today is day 8 of those medications. PHYSICAL EXAMINATION: Vital Signs: Temperature is 98.2 degrees, pulse rate 84, respiratory rate 19, blood pressure 122/54. O2 saturation is 97% on 3 L nasal cannula. General: This is a chronically ill-appearing, middle-aged female. She is sitting up in bed, currently in no acute distress. HEENT: Atraumatic, normocephalic. Oral mucous membranes are pink and moist. Conjunctivae are pale. Neck: Supple. Trachea is midline. Cardiovascular: Heart rate is regular. S1, S2 noted. Respiratory: Lung sounds are clear in the upper lobes, diminished in the mid and bases. No work of breathing is noted. Abdomen: Soft, obese, and nontender. Bowel sounds are active. Integumentary: Skin is warm and dry. Right lower extremity has a 1 to 2+ pitting pretibial edema with no erythema noted. Neurologic: She is awake, alert, oriented, and able to get up to the bathroom independently. LABORATORY AND X-RAY: None today. However, yesterday her white count was 10.02, hemoglobin 10.3, platelet count 313,000, creatinine 0.7, estimated GFR greater than 60. Chest x-ray done today is stable with a possible left basilar pneumonia and increased interstitial markings. ASSESSMENT AND PLAN: Ms. Quiles is being treated for pneumonia and a right lower extremity cellulitis, both of which appear to be improving. Her leukocytosis has resolved, and there is no visible redness to the right lower extremity. The right leg is swollen, however, and she did not have it elevated, so I put up the manual foot gatch on the bed and told her to be sure and keep that leg elevated. She states the plan will be for her to continue in the hospital over the weekend. We will continue IV antibiotics as ordered which include IV vancomycin and cefepime. These plans have been discussed with and recommended by Dr. Cee. COMORBIDITIES: for Ms. Quiles include sarcoidosis, immunosuppressant medications, COPD, and gastroesophageal reflux disease. Dictated by TRACI Vasquez for Khalif Cee MD cc: MD Denis Perdomo Jr, MD MTDD
[2019-05-26] MEDS: MAXIPIME 2 GM in NS 100 ML IV SCH ×5 (00:25→23:09)
[2019-05-26 07:59] LABS: BASO# 0.03 X1000 (0.0-0.2); BASO% 0.3 % (0.0-0.8); EOS# 0.21 X1000 (0.0-0.7); EOS% 1.9 % (0.0-10.0); HEMATOCRIT 33.8 % (37.0-47.0); HEMOGLOBIN 10.3 g/dL (12.0-16.0); IMM GRAN# 0.25 X1000 (0.0-0.04); IMM GRAN% 2.2 % (0.0-0.5); LYMPH# 1.13 X1000 (1.2-3.4); MCH 31.7 PG (27-31); MCHC 30.5 g/dL (33-37); MONO# 0.93 X1000 (0.11-0.59); MONO% 8.3 % (1.7-9.3); MPV 11.8 FL (7.4-10.4); NEUT# 8.71 X1000 (1.4-6.5); NEUT% 77.3 % (42.2-75.2); PLT 308 X1000 (130-400); RBC 3.25 XMIL (4.2-5.4); RDW 13.5 % (11.5-14.5); WBC 11.26 X1000 (4.8-10.8)
[2019-05-26 08:03] LABS: AGAP 11; BUN 5 mg/dL (8-22); CHLORIDE 97 mmol/L (98-107); COSMO 280; CREATININE 0.6 mg/dL (0.5-0.9); ESTIMATED GFR > 60; GLUCOSE 95 mg/dL (70-104); POTASSIUM 3.8 mmol/L (3.5-5.1); SODIUM 142 mmol/L (136-145); TCO2 34 mmol/L (25-35)
[2019-05-26] MEDS: POTASSIUM CHLORIDE 20% LIQUID PO SCH ×2 (10:32→10:33)
[2019-05-26] MEDS: VITAMIN D PO SCH (10:34)
[2019-05-26] MEDS: PRILOSEC PO SCH (10:34)
[2019-05-26] MEDS: TOPROL XL PO SCH (10:35)
[2019-05-26] MEDS: CARDIZEM CD PO SCH (10:35)
[2019-05-26] MEDS: PREDNISONE PO SCH (10:35)
[2019-05-26] MEDS: FOLIC ACID PO SCH (10:35)
[2019-05-26] MEDS: PEPCID IV SCH ×2 (10:36→22:38)
[2019-05-26] MEDS: LOVENOX SUBQ SCH (10:36)
[2019-05-26] MEDS: WELLBUTRIN SR PO SCH ×2 (10:42→21:24)
[2019-05-26] MEDS: BUMEX PO SCH (10:42)
[2019-05-26] MEDS: DALIRESP PO SCH (10:42)
--- NOTE | 2019-05-26 11:33 | PROGRESS NOTE ---
DATE: 05/26/2019 SUBJECTIVE: A 49-year-old patient, know case of sarcoidosis, obstructive sleep apnea, chronic steroid use admitted with right leg swelling, leukocytosis elevated lactate. Patient was admitted on May 16. Admission history/physical noted. Compartmental syndrome ruled out. The patient was given IV fluid, IV antibiotics. Clinically, patient is doing better. Her leukocytosis is improving. I reviewed Pulmonary, ID and Surgical consultation. The patient is feeling better. She denied any chest pain or unusual shortness of breath. She did have some nausea this morning, but it got better. She denied any diarrhea. No abdominal pain. No dysuria or hematuria. No unusual headache. Her leg swelling is improving. PAST MEDICAL HISTORY: Sarcoidosis, obstructive sleep apnea, pulmonary hypertension. OBJECTIVE: Vital Signs: Blood pressure 111/57, pulse 81, respirations 16, temperature 99.2 degrees. HEENT: The patient does have a son face. No pharyngeal congestion. Head atraumatic, normocephalic. [place] conjunctivae. [place] sclerae. Extraocular muscle movement normal. Neck: Supple. No JVD. Lungs: Bilateral good air entry present. CVS: S1 and S2 heard. Abdomen: Soft, globular. Bowel sounds present. Extremities: No cyanosis, clubbing. Right leg swelling much improved. No acute DVT. BIOINFORMATICIAN: Alert, awake, able to move all 4 limbs. LABORATORY DATA: WBC count 11.26 hemoglobin 10.3, hematocrit 33.8, platelet count 308. Electrolytes were fairly benign. CONSIDERATION: 1. Patient admitted with cellulitis, right leg, clinically improving. 2. History of sarcoidosis being followed up by bit shaver, clinically doing better. 3. Leukocytosis, improved. 4. Anemia of chronic disease. Hemoglobin and hematocrit stable. 5. History of sleep apnea. Her blood culture and urine culture were negative. PLAN: Overall plan discussed at length with the patient, and she is in agreement. The patient is on diuretics, IV antibiotics. We will continue current treatment and close observation. The patient is on low-dose prednisone. cc: MD Denis Ralph Jr, MD
[2019-05-26] MEDS: PATIENT'S OWN MED PO SCH (12:26)
[2019-05-26] MEDS: VANCOMYCIN 1,500 MG in NS 250 ML IV SCH (17:25)
[2019-05-27 07:51] LABS: BASO# 0.05 X1000 (0.0-0.2); BASO% 0.4 % (0.0-0.8); EOS% 1.8 % (0.0-10.0); HEMATOCRIT 33.6 % (37.0-47.0); HEMOGLOBIN 10.1 g/dL (12.0-16.0); IMM GRAN# 0.19 X1000 (0.0-0.04); IMM GRAN% 1.7 % (0.0-0.5); LYMPH# 0.95 X1000 (1.2-3.4); LYMPH% 8.4 % (20.5-51.1); MCH 31.3 PG (27-31); MCHC 30.1 g/dL (33-37); MONO% 9.7 % (1.7-9.3); MPV 11.9 FL (7.4-10.4); NEUT# 8.86 X1000 (1.4-6.5); PLT 279 X1000 (130-400); RBC 3.23 XMIL (4.2-5.4); RDW 13.6 % (11.5-14.5); WBC 11.35 X1000 (4.8-10.8)
[2019-05-27 08:23] LABS: AGAP 8; BUN 6 mg/dL (8-22); CHLORIDE 98 mmol/L (98-107); COSMO 279; CREATININE 0.6 mg/dL (0.5-0.9); ESTIMATED GFR > 60; GLUCOSE 92 mg/dL (70-104); POTASSIUM 3.6 mmol/L (3.5-5.1); SODIUM 141 mmol/L (136-145); TCO2 35 mmol/L (25-35)
[2019-05-27] MEDS: MAXIPIME 2 GM in NS 100 ML IV SCH ×3 (08:56→23:08)
[2019-05-27] MEDS: POTASSIUM CHLORIDE 20% LIQUID PO SCH ×2 (08:59)
[2019-05-27] MEDS: FOLIC ACID PO SCH (09:00)
[2019-05-27] MEDS: CARDIZEM CD PO SCH (09:00)
[2019-05-27] MEDS: WELLBUTRIN SR PO SCH ×2 (09:00→21:04)
[2019-05-27] MEDS: TOPROL XL PO SCH (09:00)
[2019-05-27] MEDS: PREDNISONE PO SCH (09:01)
[2019-05-27] MEDS: VITAMIN D PO SCH (09:01)
[2019-05-27] MEDS: PATIENT'S OWN MED PO SCH (09:01)
[2019-05-27] MEDS: DALIRESP PO SCH (09:01)
[2019-05-27] MEDS: PRILOSEC PO SCH (09:01)
[2019-05-27] MEDS: BUMEX PO SCH (09:01)
[2019-05-27] MEDS: VANCOMYCIN 1,500 MG in NS 250 ML IV SCH (11:10)
[2019-05-27] MEDS: LOVENOX SUBQ SCH (11:12)
[2019-05-27] MEDS: PEPCID IV SCH ×2 (11:12→23:09)
--- NOTE | 2019-05-27 11:52 | PROGRESS NOTE ---
DATE: 05/27/2019 SUBJECTIVE: Ms. Quiles is doing fair. The patient does have cough with scanty sputum production. Her shortness of breath is improving. No fever or chills. Denied any nausea or vomiting. Oral intake improving. Leg swelling is better. No chest pain or palpitation. OBJECTIVE: Vital Signs: Noted. Neck: Supple. No JVD. Lungs: Bilateral occasional wheezing. CVS: S1 and S2 heard. Abdomen: Soft, globular. Bowel sounds present. Extremities: No cyanosis, clubbing. Leg swelling improving. CRYPTOGRAPHIC TECHNICIAN: Alert, awake, able to move all 4 limbs. LABORATORY DATA: Lab data done today shows hemoglobin 10.1, hematocrit 33.6, WBC count 11.35, platelet 279,000. Electrolytes were fairly benign. ASSESSMENT AND PLAN: Patient admitted with: 1. Cellulitis, clinically doing well. 2. History of sarcoidosis. I think the patient will be benefitted from bronchodilator treatment. 3. Anemia of chronic disease. 4. Sleep apnea. 5. Leukocytosis, improved. 6. Situational depression. Overall plan discussed with the patient, and she is in agreement. cc: MD Denis Ralph Jr, MD
[2019-05-27] MEDS: SYMBICORT 160/4.5 MICROGM INHALER INH SCH ×2 (15:32→22:30)
[2019-05-27] MEDS: TYLENOL PO PRN (17:36)
[2019-05-27] MEDS: ZOFRAN IV PRN (21:04)
[2019-05-28] MEDS: VANCOMYCIN 1,500 MG in NS 250 ML IV SCH (03:09)
[2019-05-28] MEDS: ZOFRAN IV PRN (03:18)
[2019-05-28] MEDS: SYMBICORT 160/4.5 MICROGM INHALER INH SCH ×2 (07:38→19:30)
[2019-05-28 07:50] LABS: BASO# 0.04 X1000 (0.0-0.2); BASO% 0.4 % (0.0-0.8); EOS# 0.14 X1000 (0.0-0.7); EOS% 1.3 % (0.0-10.0); HEMATOCRIT 33.6 % (37.0-47.0); HEMOGLOBIN 10.3 g/dL (12.0-16.0); IMM GRAN# 0.14 X1000 (0.0-0.04); IMM GRAN% 1.3 % (0.0-0.5); LYMPH# 0.96 X1000 (1.2-3.4); MCH 32.2 PG (27-31); MCHC 30.7 g/dL (33-37); MONO# 1.19 X1000 (0.11-0.59); MONO% 11.2 % (1.7-9.3); NEUT# 8.18 X1000 (1.4-6.5); NEUT% 76.8 % (42.2-75.2); PLT 253 X1000 (130-400); RDW 13.8 % (11.5-14.5); WBC 10.65 X1000 (4.8-10.8)
[2019-05-28 08:09] LABS: AGAP 11; BUN 6 mg/dL (8-22); CHLORIDE 98 mmol/L (98-107); COSMO 283; CREATININE 0.7 mg/dL (0.5-0.9); ESTIMATED GFR > 60; GLUCOSE 103 mg/dL (70-104); POTASSIUM 3.9 mmol/L (3.5-5.1); SODIUM 143 mmol/L (136-145); TCO2 34 mmol/L (25-35)
[2019-05-28] MEDS: MAXIPIME 2 GM in NS 100 ML IV SCH (09:01)
[2019-05-28] MEDS: DALIRESP PO SCH (09:05)
[2019-05-28] MEDS: PREDNISONE PO SCH (09:06)
[2019-05-28] MEDS: VITAMIN D PO SCH (09:06)
[2019-05-28] MEDS: FOLIC ACID PO SCH (09:06)
[2019-05-28] MEDS: POTASSIUM CHLORIDE 20% LIQUID PO SCH ×2 (09:06→09:14)
[2019-05-28] MEDS: WELLBUTRIN SR PO SCH ×2 (09:06→20:07)
[2019-05-28] MEDS: BUMEX PO SCH (09:06)
[2019-05-28] MEDS: TOPROL XL PO SCH (09:06)
[2019-05-28] MEDS: PRILOSEC PO SCH (09:06)
[2019-05-28] MEDS: CARDIZEM CD PO SCH (09:06)
[2019-05-28] MEDS: LOVENOX SUBQ SCH ×2 (09:13→10:24)
[2019-05-28] MEDS: PATIENT'S OWN MED PO SCH (09:14)
--- NOTE | 2019-05-28 09:16 | PROGRESS NOTE ---
DATE: 05/28/2019 SUBJECTIVE: The patient says she is feeling better. Still gets tired when she gets up and moves around, but is getting up some now. OBJECTIVE: Blood pressure 112/63, respirations 14, and pulse 141, earlier it was 78. This has been jumping around somewhat. Temperature 98.4 degrees.HEENT: She is normocephalic. EOMS intact. PERRLA. Throat clear. Lungs: Clear to auscultation and percussion without rhonchi, rales, or wheezes. Heart: Regular rate and rhythm without murmurs, gallops, or friction rubs. Abdomen: Soft with active bowel sounds. No organomegaly or tenderness. Extremities: Right lower extremity is looking better. Still slightly [place] [address]. Over the weekend, it was above 11,000 so it did go up a little bit since Tuesday. ASSESSMENT: 1. Probable sepsis even though blood cultures were negative. 2. Cellulitis right lower extremity. 3. Sarcoidosis. 4. Pneumonia. 5. Hypertension. 6. Hypokalemia now resolved. PLAN: We will give IV antibiotics again today. We will ask Infectious Disease to come in on preferred oral antibiotics. If white count is in the normal range tomorrow, perhaps can discharge in the morning. I do want to see her clinically well since she has been immunocompromised. cc: Denis Calle Jr, MD
[2019-05-28] MEDS: SODIUM CHLORIDE 0.9% INJ SCH (12:20)
[2019-05-28] MEDS: PEPCID IV SCH ×2 (12:20→22:21)
[2019-05-28] MEDS: TYLENOL PO PRN (20:05)
[2019-05-28] MEDS: KEFLEX PO SCH (22:20)
--- NOTE | 2019-05-28 22:50 | INFECTIOUS DISEASE PROGRESS NO ---
DATE: 05/28/2019 The patient's cellulitis is clearing up well. Her white blood cell count came down to 10,000. I have discontinued her IV antibiotics. I would suggest treating the patient with Keflex 500 mg p.o. every 8 hours for 3 more days. I am signing off on the patient's case. I have switched her over to Keflex. I am available to see her on a p.r.n. basis. cc: MD Denis Perdomo Jr, MD
[2019-05-29] MEDS: KEFLEX PO SCH ×2 (05:30→14:11)
[2019-05-29 07:06] LABS: BASO# 0.04 X1000 (0.0-0.2); BASO% 0.4 % (0.0-0.8); EOS# 0.17 X1000 (0.0-0.7); EOS% 1.6 % (0.0-10.0); HEMATOCRIT 35.3 % (37.0-47.0); HEMOGLOBIN 10.8 g/dL (12.0-16.0); IMM GRAN# 0.13 X1000 (0.0-0.04); IMM GRAN% 1.2 % (0.0-0.5); LYMPH# 1.25 X1000 (1.2-3.4); LYMPH% 11.9 % (20.5-51.1); MCH 31.7 PG (27-31); MCHC 30.6 g/dL (33-37); MCV 103.5 FL (81-99); MONO% 10.5 % (1.7-9.3); MPV 12.3 FL (7.4-10.4); NEUT# 7.79 X1000 (1.4-6.5); NEUT% 74.4 % (42.2-75.2); PLT 265 X1000 (130-400); RBC 3.41 XMIL (4.2-5.4); RDW 13.6 % (11.5-14.5); WBC 10.48 X1000 (4.8-10.8)
[2019-05-29 07:26] LABS: AGAP 13; BUN 7 mg/dL (8-22); CALCIUM 9.3 mg/dL (8.8-10.2); CHLORIDE 95 mmol/L (98-107); COSMO 282; CREATININE 0.8 mg/dL (0.5-0.9); ESTIMATED GFR > 60; GLUCOSE 108 mg/dL (70-104); POTASSIUM 3.8 mmol/L (3.5-5.1); SODIUM 142 mmol/L (136-145); TCO2 34 mmol/L (25-35)
--- NOTE | 2019-05-29 07:44 | PULMONOLOGY PROGRESS NOTE ---
DATE: 05/28/2019 SUBJECTIVE: The patient is awake, alert, and conversant. She reports that the pain continues to decrease in her leg. She is without specific complaints today. OBJECTIVE: Vital Signs: The patient has been afebrile for the last 24 hours. Blood pressure 111/61, heart rate 80, respiratory rate 18, oxygen saturation 94% on 3 L per nasal cannula. HEENT: Pupils are equal and reactive. Oropharynx appears clear. Neck: Supple. Chest: Decreased breath sounds in both bases. Cardiac: S1, S2. Abdomen: Soft. Extremities: Decreasing erythema and edema of the right lower extremity. IMPRESSION: A 49-year-old with: 1. Hypoxemic respiratory failure. 2. Chronic elevation of the right hemidiaphragm. 3. Sarcoidosis. 4. Cellulitis of the lower extremity. PLAN: 1. Continue oxygen therapy. 2. Continue current prednisone dosing. 3. Anticipate additional oral antibiotics per Infectious Disease, with discharge home soon. cc: MD Denis Boggs Jr, MD
[2019-05-29] MEDS: SYMBICORT 160/4.5 MICROGM INHALER INH SCH (07:46)
[2019-05-29] MEDS: BUMEX PO SCH (09:06)
[2019-05-29] MEDS: POTASSIUM CHLORIDE 20% LIQUID PO SCH ×2 (09:06→09:07)
[2019-05-29] MEDS: WELLBUTRIN SR PO SCH (09:06)
[2019-05-29] MEDS: DALIRESP PO SCH (09:06)
[2019-05-29] MEDS: PREDNISONE PO SCH (09:06)
[2019-05-29] MEDS: FOLIC ACID PO SCH (09:06)
[2019-05-29] MEDS: CARDIZEM CD PO SCH (09:06)
[2019-05-29] MEDS: VITAMIN D PO SCH (09:06)
[2019-05-29] MEDS: PRILOSEC PO SCH (09:06)
[2019-05-29] MEDS: TOPROL XL PO SCH (09:06)
[2019-05-29] MEDS: LOVENOX SUBQ SCH ×2 (09:07→10:11)
[2019-05-29] MEDS: PATIENT'S OWN MED PO SCH (09:11)
[2019-05-29] MEDS: PEPCID IV SCH (10:12)
[2019-05-29 11:58] VITALS: BP 121/79
[2019-05-29] MEDS: TYLENOL PO PRN (14:37)
--- NOTE | 2019-05-30 06:12 | DISCHARGE SUMMARY ---
ADMISSION DATE: 05/16/2019 DISCHARGE DATE: 05/29/2019 CONSULTATIONS: 1. Dr. Dariel Valero Surgery. 2. Dr. Dorsey, Pulmonology. 3. Dr. Cee, Infectious Disease. FINAL DIAGNOSES: 1. I believe that she had sepsis when she first came in even though blood cultures were negative. She did get antibiotics very early. She did have a high lactic acid level and very high white count, and certainly acted like she was septic. 2. Cellulitis right lower extremity. 3. Sarcoidosis. 4. Pneumonia resolved. 5. Hypertension. 6. Hypokalemia resolved. 7. Immunocompromised. DISCHARGE MEDICATIONS: We will discharge home on her home medications with the exception that she will wait till Tuesday before restarting her methotrexate; this is Tuesday. She will start taking prednisone 10 mg daily until Tuesday, and then go down to 5 mg daily where she was before. She will also be on Keflex 500 mg p.o. t.i.d. for the next 4 days. CONDITION ON DISCHARGE: Vital signs are stable on discharge. Right lower extremity shows considerable improvement with no heat coming from it at all now. PRESENT ILLNESS: Patient is a 49-year-old black female with sarcoidosis with multiple medications including methotrexate and prednisone. She awoke the morning of admission with her right leg swollen and hurt so much. She decided to come to the emergency room where she was found to have a cellulitis, and white count a little over 30,000 with a hemoglobin 11.0. Her lactate was very elevated at 7. Potassium was low at 2.4. Kidney function tests were normal. Hemoglobin 11.0. Urinalysis did show 4+ bacteria. A culture was negative, and there were no leukocytes. Blood sugar was 192. The patient was started on IV antibiotics. Consultations were made with surgery because of possible compartmental syndrome of right lower extremity but this turned out not to be so, and she has cellulitis. She was seen by infectious disease, and she was seen by pulmonology. Her chest x-ray did show bilateral infiltrates at one time. After antibiotics, this did get much better. She was continued on IV Solu-Medrol and later changed over to prednisone 10 mg daily. The patient has slowly gotten better. She was immunocompromised from her medications. DISCHARGE EXAMINATION: Today, she is much better. Vital Signs: Blood pressure 121/64, respirations 14, pulse 85, and temperature 98.9 degrees Fahrenheit. HEENT: She is normocephalic. Extraocular movements are intact. PERRLA. Throat clear. Lungs: Clear to auscultation and percussion without rhonchi, rales, or wheezes. Heart: Regular rate and rhythm without murmurs, gallops, or friction rubs. Abdomen: Soft. Active bowel sounds. No organomegaly or tenderness. Neurologic: Exam intact grossly. Right lower extremity has only a little edema of which she has some generalized edema from her steroids anyway. I feel no heat there now. I believe the cellulitis has resolved. FOLLOW UP: We will see back in my office in the next week. I appreciate the help from all the specialists. cc: Denis Calle Jr, MD
== END 2019-05-29 16:33 | disposition home health service (06) | DRG 871 ==
LOC: SUPCPDRO → ED 09:45 → ICU 16:16 → 3N 05-18 15:02
PROVIDERS: ADMIT Emergency Medicine; ATTEND Emergency Medicine